=== PATIENT | female | born 1960 | race African-American/Black ===

== ENCOUNTER 2020-10-27 12:22 | Outpatient (REF) | payer MEDICAID, SELFPAY ==
--- NOTE | 2020-10-27 12:29 | MM_ITS ---
EXAMINATION: MM SCREENING DIGITAL BREAST TOMOSYNTHESIS, BILATERAL CLINICAL INFORMATION: Screening. Asymptomatic. Family history breast cancer, sister. The lifetime risk of breast cancer based on the Tyrer-Cuzick Model is 6%. COMPARISON: Mammography: 11/03/2015, outside exam 07/14/2010 ([facility]). TECHNIQUE: Digital breast tomosynthesis is performed in both the craniocaudal and mediolateral oblique views along with computer-aided detection (CAD). Synthesized 2D images are generated from the tomosynthesis. FINDINGS: The breasts are heterogeneously dense, which may obscure small masses (ACR BI-RADS breast composition Category c). There are no significant masses, abnormal calcifications, or other abnormalities. Parenchymal pattern is similar to prior exams. No significant changes. MM/MM tomosynthesis screening BI IMPRESSION: No mammographic evidence of malignancy. ASSESSMENT: BI-RADS 1: Negative RECOMMENDATION: Routine annual mammography screening. This patient's information was entered into a reminder system with a target due date for their next mammogram.
== END 2020-10-27 12:23 | disposition home or self-care (01) ==
LOC: HO.MAMMO 12:22
PROVIDERS: PCP Emergency Medicine; Visit Provider Advanced Practice Midwife
DX: Z12.31 Encounter for screening mammogram for malignant neoplasm of breast (principal)
CPT/HCPCS: 77063; 77067

== ENCOUNTER 2020-11-25 14:57 | Outpatient (REF) | payer MEDICAID, SELFPAY ==
--- NOTE | 2020-11-25 | MR_ITS ---
EXAMINATION: MR BREAST WITHOUT AND WITH CONTRAST, BILATERAL CLINICAL INFORMATION: High-risk screening, strong family history of breast cancer. COMPARISON: Bilateral mammogram 10/27/2020. TECHNIQUE: Imaging was performed with a dedicated breast coil. Prior to the administration of contrast, bilateral axial T1 and bilateral axial T2 weighted sequences were obtained. After the uneventful administration of?5.5 mL of Gadavist, dynamic contrast-enhanced VIBRANT series through the breasts in the axial plane were performed. Subtracted images were performed and reviewed. A delayed sagittal sequence through both breasts was acquired. Additionally, CAD post-processing, including maximum intensity projections, 3-D reconstructions and kinetic analysis, were performed an independent workstation and reviewed by the interpreting radiologist is a portion of this exam. FINDINGS: The breast tissue is composed of extremely dense fibroglandular elements. There is no significant background parenchymal enhancement present in either breast. LEFT BREAST: No suspicious masslike or non-masslike enhancement. No abnormal skin thickening or nipple retraction. No abnormal architectural distortion. Review of the T2 weighted images demonstrates no fibrocystic changes or dilated ducts. Review of kinetic images reveals no additional findings. RIGHT BREAST: No suspicious masslike or non-masslike enhancement. No abnormal skin thickening or nipple retraction. No abnormal architectural distortion. Review of the T2 weighted images demonstrates no fibrocystic changes or dilated ducts. Review of kinetic images reveals no additional findings. There is no suspicious internal mammary chain or axillary adenopathy. Limited views of the chest and abdomen are unremarkable. MR/MR breast BI wo/w con IMPRESSION: No MR specific evidence of malignancy. ASSESSMENT: LEFT BREAST: BI-RADS 1 - Negative. RIGHT BREAST: BI-RADS 1 - Negative. RECOMMENDATIONS: Bilateral mammogram in September 2021. Repeat MRI as clinically indicated.
== END 2020-11-25 14:58 | disposition home or self-care (01) ==
LOC: HO.MRI 14:57
PROVIDERS: Visit Provider Advanced Practice Midwife
DX: Z80.3 Family history of malignant neoplasm of breast (principal)
CPT/HCPCS: 77049; A9585

== ENCOUNTER 2022-06-23 10:45 | Outpatient (REF) | payer MEDICAID, SELFPAY ==
--- NOTE | ~2022-06-23 | XR_ITS ---
EXAMINATION: XR LUMBOSACRAL SPINE WITH OBLIQUES CLINICAL INFORMATION: Low back pain COMPARISON: None TECHNIQUE: AP, both oblique, and lateral views of the lumbar spine. Lateral view of the lumbosacral junction. FINDINGS: There is mild 3 mm anterior subluxation of L4 with respect L5. Bone alignment is otherwise normal. No fracture or dislocation is seen. There is degenerative disc disease at L4-L5. There is lower lumbar spine facet arthritis. XR/XR lumbar spine 4V min IMPRESSION: Degenerative changes.
--- NOTE | ~2022-06-23 | XR_ITS ---
EXAMINATION: BILATERAL KNEE X-RAY CLINICAL INFORMATION: Pain COMPARISON: None TECHNIQUE: 3 views of each knee FINDINGS: Bone alignment is normal. No fracture or dislocation is seen. Joint spaces are normal. There is no joint effusion. XR/XR knee RT 3V IMPRESSION: Normal knees.
--- NOTE | ~2022-06-23 | XR_ITS ---
EXAMINATION: BILATERAL KNEE X-RAY CLINICAL INFORMATION: Pain COMPARISON: None TECHNIQUE: 3 views of each knee FINDINGS: Bone alignment is normal. No fracture or dislocation is seen. Joint spaces are normal. There is no joint effusion. XR/XR knee LT 3V IMPRESSION: Normal knees.
[2022-06-23 11:12] LABS: MANUAL DIFF FLAG NO
[2022-06-23 11:56] LABS: Basophils Percent Auto 0.3 % (0-2); Eosinophils Absolute Auto 0.3 X10*3/uL (0.0-0.4); Eosinophils Percent Auto 3.4 % (0-4); Hematocrit 44.1 % (37.0-47.0); Hemoglobin 14.2 g/dl (12.0-16.0); Imm Gran Abs Auto 0.04 X10*3/uL (0.00-0.03); Imm Gran Pct Auto 0.4 % (0.0-0.4); Lymphocytes Absolute Auto 2.6 X10*3/uL (1.2-4.9); Lymphocytes Percent Auto 25.5 % (20-40); Mean Corpuscular HGB Conc 32.2 g/dl (31.0-35.0); Mean Corpuscular Volume 86.8 fL (80.0-98.0); Mean Platelet Volume 8.8 fL (9.4-12.3); Monocytes Absolute Auto 0.6 X10*3/uL (0.1-1.2); Monocytes Percent Auto 6.2 % (2-11); Neutrophils Absolute Auto 6.5 x10*3/uL (2.0-8.3); Neutrophils Percent Auto 64.2 % (45-73); Platelet Count 296 X10*3/uL (160-400); Red Blood Count 5.08 X10*6/uL (4.20-5.50); Red Cell Distribution Width 12.6 % (11.0-16.0); White Blood Count 10.1 X10*3/uL (4.8-10.8)
[2022-06-23 12:32] LABS: Alanine Aminotransferase 19 U/L (0-31); Alkaline Phosphatase 82 U/L (39-117); Anion Gap 15 (12-20); Aspartate Amino Transferase 23 U/L (5-31); Bilirubin Direct 0.2 mg/dL (0.0-0.5); Bilirubin Total 0.4 mg/dL (0.0-1.0); Blood Urea Nitrogen 10 mg/dL (9-16); Calcium 9.7 mg/dL (8.4-10.2); Carbon Dioxide 31 mmol/L (22-29); Chloride 98 mmol/L (96-108); Cholesterol 143 mg/dL; Estimated Glomerular Filt Rate > 60; Glucose Random 129 mg/dL (60-115); HDL Cholesterol 56 mg/dL; LDL Cholesterol Calculated 75 mg/dl; Potassium 4.5 mmol/L (3.3-5.1); Sodium 139 mmol/L (135-145); Total Protein 7.5 g/dL (6.5-8.0); Triglycerides 64 mg/dL
[2022-06-24 05:28] LABS: ~HepC Num1 14.31 S/CO (0.00-0.79); ~Hepatitis C Antibody Reactive (Nonreactive)
[2022-06-27 17:02] LABS: HCV Log PCR 6.29 Log IU/mL (NOT DETECTED); HepC Viral Load 1950000 IU/mL (NOT DETECTED)
== END 2022-06-23 10:46 | disposition home or self-care (01) ==
LOC: HO.LAB 10:45
PROVIDERS: Visit Provider Internal Medicine Geriatric Medicine
DX: M25.561 Pain in right knee (principal); M25.562 Pain in left knee; M54.50 Low back pain, unspecified
CPT/HCPCS: 36415; 72110; 73562; 80048; 80061; 80076; 85025; 86803; 87522

== ENCOUNTER → 2022-07-06 10:44 | Outpatient (BNVA) | payer MEDICAID, SELFPAY | PROVIDERS: PCP Nurse Practitioner Family; Referring Provider Nurse Practitioner Family; Visit Provider Internal Medicine | DX: R01.1 Cardiac murmur, unspecified (principal); F19.10 Other psychoactive substance abuse, uncomplicated | CPT/HCPCS: 93005; 99202 ==

== ENCOUNTER 2023-01-02 15:52 | Emergency (ER) | payer MEDICAID, SELFPAY ==
--- NOTE | 2023-01-02 15:58 | ED_ITS ---
HPI - General Adult General Chief complaint: Back Pain/Injury <FRANSISCO Whitney - Last Filed: 01/02/23 16:05> Stated complaint: Cant feel her legs <FRANSISCO Whitney - Last Filed: 01/02/23 16:05> Time Seen by Provider: 01/02/23 17:52 <FRANSISCO Whitney - Last Filed: 01/02/23 16:05> Source: patient <Magdaleno Ortiz MD - Last Filed: 01/02/23 23:01> Mode of arrival: ambulatory <Magdaleno Ortiz MD - Last Filed: 01/02/23 23:01> Limitations: no limitations <Magdaleno Ortiz MD - Last Filed: 01/02/23 23:01> History of Present Illness HPI narrative: Patient history of chronic back going on for years got worse for last few months with increased leg swelling in mostly localized in the lumbar area radiates to left leg sometimes when walks no paresthesia no bladder bowel in loss of sensation in the back no recent injury no fever chills no IVDA use patient also noticed increased leg swelling for last few months and has gained weight <Magdaleno Ortiz MD - Last Filed: 01/02/23 23:01> Related Data Home medications: Home Medications Medication Instructions Recorded Confirmed methadone 10 mg/mL oral concentrate 52 mg PO DAILY 07/06/22 07/06/22 Previous Rx's Medication Instructions Recorded cyclobenzaprine 10 mg tablet 10 mg PO Q8H #20 tabs 01/02/23 hydrochlorothiazide 25 mg tablet 25 mg PO QAM #30 tabs 01/02/23 tramadol 50 mg tablet 50 mg PO Q6H PRN pain #20 tabs 01/02/23 <FRANSISCO Whitney - Last Filed: 01/02/23 16:05> Allergies/adverse reactions: Allergies Allergy/AdvReac Type Severity Reaction Status Date / Time Sulfa (Sulfonamide Allergy Unknown SWELLING Verified 07/06/22 10:54 Antibiotics) [SULFA (SULFONAMIDE ANTIBIOTICS)] <FRANSISCO Whitney - Last Filed: 01/02/23 16:05> Review of Systems Review of Systems: Yes all other systems are reviewed and are negative <Magdaleno Ortiz MD - Last Filed: 01/02/23 23:01> [facility] Past Medical History Medical History: Medical History Substance abuse <FRANSISCO Whitney - Last Filed: 01/02/23 16:05> Surgical History: Surgical History No pertinent past surgical history <FRANSISCO Whitney - Last Filed: 01/02/23 16:05> Family History Family History: Family History Other Family history unknown <FRANSISCO Whitney - Last Filed: 01/02/23 16:05> Social History Social History: Social History Patient Tobacco Use Status: Current everyday Tobacco user Cigarettes Per Day: 1 Smoked in Last 30 Days: Yes Use of substances other than those prescribed or required for medical reasons: Yes Substance Use Type: Crack/Cocaine Substance Use Frequency: Daily Last Used Substance: Just Prior to Admission Any prior treatment program specific to substance use: Yes Advance Directives: No Advance Directives Information Provided: Yes <FRANSISCO Whitney - Last Filed: 01/02/23 16:05> Physical Exam ED Vital Signs: Vital Signs - 24 hr 01/02/23 15:59 01/02/23 16:21 01/02/23 20:53 Temperature 98.3 F 98.3 F Pulse Rate 108 H 107 H 89 Respiratory Rate 16 14 16 Blood Pressure 168/92 H 154/90 H 141/76 H Pulse Oximetry 96 93 97 Oxygen Delivery Method Room Air Room Air Room Air BMI result Body Mass Index 29.2 <FRANSISCO Whitney - Last Filed: 01/02/23 16:05> Vital Signs - 24 hr 01/02/23 15:59 01/02/23 16:21 01/02/23 20:53 Temperature 98.3 F 98.3 F Pulse Rate 108 H 107 H 89 Respiratory Rate 16 14 16 Blood Pressure 168/92 H 154/90 H 141/76 H Pulse Oximetry 96 93 97 Oxygen Delivery Method Room Air Room Air Room Air BMI result Body Mass Index 29.2 <Magdaleno Ortiz MD - Last Filed: 01/02/23 23:01> Appearance: Alert. Oriented X3. No acute distress. Eyes: PERRLA, No Nystagmus ENT: Pharynx normal. Oral Mucosa moist Neck: Normal inspection. Neck supple. CVS: Normal heart rate and rhythm. Pulses normal. Respiratory: No respiratory distress. Equal air entry bilateral, no wheezing/rales/rhonchi Abdomen: Soft and nontender. Bowel sounds are present, no mass palpable, no CVA tenderness Skin: Skin warm and dry. Normal skin color. Normal skin turgor. Extremities: 2 + lower extremity edema. No calf tenderness back: Diffuse tenderness lumbar spine area no deformity no skin color change SLR negative bilaterally Neuro: Oriented X 3. No motor deficit. No sensory deficit.No cerebellar signs , cranial nerves II-XII intact <Magdaleno Ortiz MD - Last Filed: 01/02/23 23:01> Course Course Course Narrative: RME - 62 yo female with history of substance abuse, hepatitis C presents to the ER for evaluation of severe low back pain and inability to walk. She is falling asleep in triage and a poor historian. Reports the pain has been present for 4-5 years. HR 108. Needs labs and thorough physical examination. To be brought back to treatment room. <FRANSISCO Whitney - Last Filed: 01/02/23 16:05> Medications Administered Discontinued Medications Generic Name Dose Route Start Last Admin Trade Name Freq PRN Reason Stop Dose Admin Cyclobenzaprine HCl 10 mg 01/02/23 20:42 01/02/23 20:51 Cyclobenzaprine Hcl 10 Mg Tablet PO 01/02/23 20:43 10 mg ONCE ONE Administration Prednisone 40 mg 01/02/23 20:42 01/02/23 20:51 Prednisone 20 Mg Tablet PO 01/02/23 20:43 40 mg ONCE ONE Administration <FRANSISCO Whitney - Last Filed: 01/02/23 16:05> Medications Administered Discontinued Medications Generic Name Dose Route Start Last Admin Trade Name Freq PRN Reason Stop Dose Admin Cyclobenzaprine HCl 10 mg 01/02/23 20:42 01/02/23 20:51 Cyclobenzaprine Hcl 10 Mg Tablet PO 01/02/23 20:43 10 mg ONCE ONE Administration Prednisone 40 mg 01/02/23 20:42 01/02/23 20:51 Prednisone 20 Mg Tablet PO 01/02/23 20:43 40 mg ONCE ONE Administration <Magdaleno Ortiz MD - Last Filed: 01/02/23 23:01> Medical Decision Making Medical Decision Making [facility] Narrative: Patient with chronic low back pain no focal neurological deficit leg edema likely dependent edema as BNP normal liver functions normal discharge patient home on pain management and diuretics <Magdaleno Ortiz MD - Last Filed: 01/02/23 23:01> Lab Data [facility] Lab Attestation statement: I reviewed the patient's lab results. <Magdaleno Ortiz MD - Last Filed: 01/02/23 23:01> Result Diagrams: 01/02/23 19:01 01/02/23 19:01 <FRANSISCO Whitney - Last Filed: 01/02/23 16:05> Labs: Lab Results 01/02/23 01/02/23 01/02/23 Range/Units 19:01 19:01 19:01 WBC 9.6 (4.8-10.8) X10*3/uL RBC 5.33 (4.20-5.50) X10*6/uL Hgb 14.8 (12.0-16.0) g/dl Hct 47.0 (37.0-47.0) % MCV 88.2 (80.0-98.0) fL MCH 27.8 (27.0-33.0) pg MCHC 31.5 (31.0-35.0) g/dl RDW 12.7 (11.0-16.0) % Plt Count 275 (160-400) X10*3/uL MPV 8.6 L (9.4-12.3) fL Immature Gran % (Auto) 0.2 (0.0-0.4) % Neut % (Auto) 65.4 (45-73) % Lymph % (Auto) 24.7 (20-40) % Coal % (Auto) 5.8 (2-11) % Eos % (Auto) 3.6 (0-4) % Baso % (Auto) 0.3 (0-2) % Lymph # (Auto) 2.4 (1.2-4.9) X10*3/uL Coal # (Auto) 0.6 (0.1-1.2) X10*3/uL Eos # (Auto) 0.4 (0.0-0.4) X10*3/uL Baso # (Auto) 0.0 (0.0-0.2) X10*3/uL Abs Immat Gran (auto) 0.02 (0.00-0.03) X10*3/uL Absolute Neuts (auto) 6.3 (2.0-8.3) x10*3/uL Absolute Nucleated RBC 0.000 (0.0-0.012) X10*3/uL Nucleated RBC % (auto) 0.0 (0.0-0.2) /100WBC Sodium 140 (135-145) mmol/L Potassium 5.0 (3.3-5.1) mmol/L Chloride 105 (96-108) mmol/L Carbon Dioxide 22 (22-29) mmol/L Anion Gap 18 (12-20) BUN 15 (9-16) mg/dL Creatinine 0.85 (0.5-1.4) mg/dL Estim Creat Clear Calc 59.8 Estimated GFR > 60 Random Glucose 131 H (60-115) mg/dL Calcium 9.7 (8.4-10.2) mg/dL Magnesium 2.1 (1.6-2.6) mg/dL Total Bilirubin 0.4 (0.0-1.0) mg/dL Direct Bilirubin < 0.2 (0.0-0.5) mg/dL AST 30 (5-31) U/L ALT 21 (0-31) U/L Alkaline Phosphatase 91 (39-117) U/L B-Natriuretic Peptide 10 (<100) pg/mL Total Protein 7.7 (6.5-8.0) g/dL Albumin 4.2 (3.5-5.0) g/dL <FRANSISCO Whitney - Last Filed: 01/02/23 16:05> Lab Results 01/02/23 01/02/23 01/02/23 Range/Units 19:01 19:01 19:01 WBC 9.6 (4.8-10.8) X10*3/uL RBC 5.33 (4.20-5.50) X10*6/uL Hgb 14.8 (12.0-16.0) g/dl Hct 47.0 (37.0-47.0) % MCV 88.2 (80.0-98.0) fL MCH 27.8 (27.0-33.0) pg MCHC 31.5 (31.0-35.0) g/dl RDW 12.7 (11.0-16.0) % Plt Count 275 (160-400) X10*3/uL MPV 8.6 L (9.4-12.3) fL Immature Gran % (Auto) 0.2 (0.0-0.4) % Neut % (Auto) 65.4 (45-73) % Lymph % (Auto) 24.7 (20-40) % Coal % (Auto) 5.8 (2-11) % Eos % (Auto) 3.6 (0-4) % Baso % (Auto) 0.3 (0-2) % Lymph # (Auto) 2.4 (1.2-4.9) X10*3/uL Coal # (Auto) 0.6 (0.1-1.2) X10*3/uL Eos # (Auto) 0.4 (0.0-0.4) X10*3/uL Baso # (Auto) 0.0 (0.0-0.2) X10*3/uL Abs Immat Gran (auto) 0.02 (0.00-0.03) X10*3/uL Absolute Neuts (auto) 6.3 (2.0-8.3) x10*3/uL Absolute Nucleated RBC 0.000 (0.0-0.012) X10*3/uL Nucleated RBC % (auto) 0.0 (0.0-0.2) /100WBC Sodium 140 (135-145) mmol/L Potassium 5.0 (3.3-5.1) mmol/L Chloride 105 (96-108) mmol/L Carbon Dioxide 22 (22-29) mmol/L Anion Gap 18 (12-20) BUN 15 (9-16) mg/dL Creatinine 0.85 (0.5-1.4) mg/dL Estim Creat Clear Calc 59.8 Estimated GFR > 60 Random Glucose 131 H (60-115) mg/dL Calcium 9.7 (8.4-10.2) mg/dL Magnesium 2.1 (1.6-2.6) mg/dL Total Bilirubin 0.4 (0.0-1.0) mg/dL Direct Bilirubin < 0.2 (0.0-0.5) mg/dL AST 30 (5-31) U/L ALT 21 (0-31) U/L Alkaline Phosphatase 91 (39-117) U/L B-Natriuretic Peptide 10 (<100) pg/mL Total Protein 7.7 (6.5-8.0) g/dL Albumin 4.2 (3.5-5.0) g/dL <Magdaleno Ortiz MD - Last Filed: 01/02/23 23:01> Discharge Plan Discharge Clinical Impression: Strain of lumbar region <FRANSISCO Whitney - Last Filed: 01/02/23 16:05> Patient Disposition: Home, Self-Care <FRANSISCO Whitney - Last Filed: 01/02/23 16:05> Instructions: Back Pain (ED) <FRANSISCO Whitney - Last Filed: 01/02/23 16:05> Additional Instructions: Take pain medication muscle relaxants as prescribed Follow-up with your PCP if not better Keep your legs elevated Take water pill daily as needed for increased leg swelling <FRANSISCO Whitney - Last Filed: 01/02/23 16:05> Prescriptions: New cyclobenzaprine 10 mg tablet 10 mg PO Q8H Qty: 20 0RF tramadol 50 mg tablet 50 mg PO Q6H PRN (Reason: pain) Qty: 20 0RF hydrochlorothiazide 25 mg tablet 25 mg PO QAM Qty: 30 0RF No Action methadone 10 mg/mL concentrate 52 mg PO DAILY <FRANSISCO Whitney - Last Filed: 01/02/23 16:05> Interventions: ED Discharge Assessment Last Done: 01/02/23 21:18 <FRANSISCO Whitney - Last Filed: 01/02/23 16:05> Discharge Date/Time: 01/02/23 21:28 <FRANSISCO Whitney - Last Filed: 01/02/23 16:05>
[2023-01-02 15:59] VITALS: BP 168/92; PULSE 108; RESP 16; TEMP 36.8; O2SAT 96; BMI 29.2
[2023-01-02 16:21] VITALS: BP 154/90; PULSE 107; RESP 14; TEMP 36.8; O2SAT 93
[2023-01-02 19:08] LABS: MANUAL DIFF FLAG NO
[2023-01-02 19:09] LABS: Basophils Percent Auto 0.3 % (0-2); Eosinophils Absolute Auto 0.4 X10*3/uL (0.0-0.4); Eosinophils Percent Auto 3.6 % (0-4); Hemoglobin 14.8 g/dl (12.0-16.0); Imm Gran Abs Auto 0.02 X10*3/uL (0.00-0.03); Imm Gran Pct Auto 0.2 % (0.0-0.4); Lymphocytes Absolute Auto 2.4 X10*3/uL (1.2-4.9); Lymphocytes Percent Auto 24.7 % (20-40); Mean Corpuscular HGB Conc 31.5 g/dl (31.0-35.0); Mean Corpuscular Hemoglobin 27.8 pg (27.0-33.0); Mean Corpuscular Volume 88.2 fL (80.0-98.0); Mean Platelet Volume 8.6 fL (9.4-12.3); Monocytes Absolute Auto 0.6 X10*3/uL (0.1-1.2); Monocytes Percent Auto 5.8 % (2-11); Neutrophils Absolute Auto 6.3 x10*3/uL (2.0-8.3); Neutrophils Percent Auto 65.4 % (45-73); Platelet Count 275 X10*3/uL (160-400); Red Blood Count 5.33 X10*6/uL (4.20-5.50); Red Cell Distribution Width 12.7 % (11.0-16.0); White Blood Count 9.6 X10*3/uL (4.8-10.8)
--- NOTE | 2023-01-02 19:09 | PC.NURSE ---
assumed care of pt at 1900, pt reports using crack cocaine, has been off methadone due to wt gain, pt resting quietly, vss, phlebotomy at bedside obtaining labs.
[2023-01-02 19:34] LABS: Alanine Aminotransferase 21 U/L (0-31); Albumin Level 4.2 g/dL (3.5-5.0); Alkaline Phosphatase 91 U/L (39-117); Anion Gap 18 (12-20); Aspartate Amino Transferase 30 U/L (5-31); Bilirubin Direct < 0.2 mg/dL (0.0-0.5); Bilirubin Total 0.4 mg/dL (0.0-1.0); Blood Urea Nitrogen 15 mg/dL (9-16); Calcium 9.7 mg/dL (8.4-10.2); Carbon Dioxide 22 mmol/L (22-29); Chloride 105 mmol/L (96-108); Creatinine Clr Calc Pharmacy 59.8; Estimated Glomerular Filt Rate > 60; Glucose Random 131 mg/dL (60-115); Magnesium 2.1 mg/dL (1.6-2.6); Sodium 140 mmol/L (135-145); Total Protein 7.7 g/dL (6.5-8.0)
[2023-01-02 19:38] LABS: B Type Natriuretic Peptide 10 pg/mL (<100)
[2023-01-02] MEDS: Cyclobenzaprine HCl 10 MG TABLET PO (20:51)
[2023-01-02] MEDS: predniSONE 20 MG TABLET 40 MG PO (20:51)
[2023-01-02 20:53] VITALS: BP 141/76; PULSE 89; RESP 16; O2SAT 97
--- NOTE | 2023-01-02 20:58 | PC.NURSE ---
pt reporting improvement in back pain while at rest, pt remains drowsy, vss, medicated per provider order, pt provided with a sandwich and gulshan candice. no new orders at this time.
== END 2023-01-02 21:28 | disposition home or self-care (01) ==
PROVIDERS: Physician Assistant; Emergency Provider Internal Medicine
DX: S39.012A Strain of muscle, fascia and tendon of lower back, initial encounter (principal); X58.XXXA Exposure to other specified factors, initial encounter; R60.0 Localized edema; F19.10 Other psychoactive substance abuse, uncomplicated; F11.20 Opioid dependence, uncomplicated; F17.210 Nicotine dependence, cigarettes, uncomplicated; Y93.9 Activity, unspecified; Y92.9 Unspecified place or not applicable; Y99.9 Unspecified external cause status
CPT/HCPCS: 36415; 80048; 80076; 83735; 83880; 85025; 99283; 99284

== ENCOUNTER 2024-02-26 15:05 | Outpatient (REF) | payer MEDICAID, SELFPAY ==
[2024-02-26 17:37] LABS: Microalbum/Creatinine Ratio Ur 9.4 ug/mg cr (<30)
== END 2024-02-26 15:06 | disposition home or self-care (01) ==
LOC: HO.HHCL 15:05
PROVIDERS: Visit Provider Internal Medicine Geriatric Medicine
DX: I10 Essential (primary) hypertension (principal); B18.2 Chronic viral hepatitis C
CPT/HCPCS: 82043; 82570

== ENCOUNTER 2024-03-06 13:51 | Outpatient (REF) | payer MEDICAID, SELFPAY ==
[2024-03-06 14:24] LABS: MANUAL DIFF FLAG NO
[2024-03-06 15:44] LABS: Basophils Percent Auto 0.3 % (0-2); Eosinophils Absolute Auto 0.3 X10*3/uL (0.0-0.4); Eosinophils Percent Auto 3.2 % (0-4); Hematocrit 42.6 % (37.0-47.0); Hemoglobin 13.8 g/dl (12.0-16.0); Imm Gran Abs Auto 0.03 X10*3/uL (0.00-0.03); Imm Gran Pct Auto 0.3 % (0.0-0.4); Lymphocytes Absolute Auto 2.5 X10*3/uL (1.2-4.9); Lymphocytes Percent Auto 27.7 % (20-40); Mean Corpuscular HGB Conc 32.4 g/dl (31.0-35.0); Mean Corpuscular Hemoglobin 27.9 pg (27.0-33.0); Mean Corpuscular Volume 86.2 fL (80.0-98.0); Mean Platelet Volume 9.2 fL (9.4-12.3); Monocytes Absolute Auto 0.7 X10*3/uL (0.1-1.2); Monocytes Percent Auto 7.5 % (2-11); Neutrophils Absolute Auto 5.5 x10*3/uL (2.0-8.3); Platelet Count 328 X10*3/uL (160-400); Red Blood Count 4.94 X10*6/uL (4.20-5.50); Red Cell Distribution Width 12.7 % (11.0-16.0); White Blood Count 9.1 X10*3/uL (4.8-10.8)
[2024-03-06 15:47] LABS: Prothrombin Time 11.8 SEC (11.1-13.3)
[2024-03-06 16:03] LABS: Estimated Average Glucose 117 mg/dL; Hemoglobin A1c % 5.7 % (<6.0)
[2024-03-06 16:06] LABS: Creatinine Urine 133.14 mg/dL; Microalbum/Creatinine Ratio Ur 34.5 ug/mg cr (<30)
[2024-03-06 16:12] LABS: Alanine Aminotransferase 21 U/L (0-31); Albumin Level 4.4 g/dL (3.5-5.0); Alkaline Phosphatase 84 U/L (39-117); Anion Gap 15 (12-20); Aspartate Amino Transferase 27 U/L (5-31); Bilirubin Direct 0.2 mg/dL (0.0-0.5); Bilirubin Total 0.4 mg/dL (0.0-1.0); Blood Urea Nitrogen 19 mg/dL (9-16); Calcium 10.2 mg/dL (8.4-10.2); Carbon Dioxide 28 mmol/L (22-29); Chloride 103 mmol/L (96-108); Cholesterol 145 mg/dL (<200); Estimated Glomerular Filt Rate > 60; Glucose Random 88 mg/dL (60-115); HDL Cholesterol 64 mg/dL (>40); LDL Cholesterol Calculated 71 mg/dL (<100); Potassium 3.8 mmol/L (3.3-5.1); Sodium 142 mmol/L (135-145); Total Protein 8.3 g/dL (6.5-8.0); Triglycerides 52 mg/dL (<150)
[2024-03-07 04:40] LABS: HBS Num1 > 1000.00 mIU/mL (0-7.99); HBc Num1 5.17 S/CO (0.00-0.79); HBsAGNum1 0.35 S/CO (0.00-0.99); HIV AB/AG Nonreactive (Nonreactive); HIV Num 1 0.12 S/CO (0.00-0.99); Hepatitis B Surface Antigen Negative (Negative); ~HepC Num1 13.24 S/CO (0.00-0.79); ~Hepatitis B Surface Antibody REACTIVE (Nonreactive); ~Hepatitis C Antibody Reactive (Nonreactive)
[2024-03-07 04:50] LABS: Hepatitis A Antibody IgM 0.75 Index (0-0.79); ~Hepatitis A Antibody IgM Nonreactive (Nonreactive)
[2024-03-07 05:18] LABS: HBc Num2 5.44 S/CO; HBc Num3 5.13 S/CO; Hepatitis B Core Antibody Reactive (Nonreactive)
[2024-03-08 08:09] LABS: HCV RNA PCR Qn 1500000 IU/mL (NOT DETECTED); HCV RNA PCR Qn 6.18 Log IU/mL (NOT DETECTED)
[2024-03-13 15:39] LABS: HCV Genotype LiPA 1a
[2024-03-18 15:39] LABS: FIB-ALT 17 U/L (6-29); FIB-Alpha-2-Macroglobulin 134 mg/dL (106-279); FIB-Apolipoprotein A1 135 mg/dL (101-198); FIB-GGT 22 U/L (3-65); FIB-Haptoglobin 86 mg/dL (43-212); FIB-Total Bilirubin 0.4 mg/dL (0.2-1.2); Liver Fibrosis Score 0.13; Liver Fibrosis Stage F0; Nec Inflam Act Grade A0; Nec Inflam Act Score 0.05
== END 2024-03-06 13:52 | disposition home or self-care (01) ==
LOC: HO.LAB 13:51
PROVIDERS: Absent Provider Internal Medicine Geriatric Medicine; PCP Internal Medicine Geriatric Medicine; Visit Provider Emergency Medicine
DX: I10 Essential (primary) hypertension (principal); B18.2 Chronic viral hepatitis C
CPT/HCPCS: 36415; 80048; 80061; 80076; 81596; 82043; 82570; 83036; 85025; 85610; 86704; 86706; 86709; 86803; 87340; 87389; 87522; 87902

== ENCOUNTER → 2024-03-19 10:30 | Outpatient (BNV) | payer MEDICAID, SELFPAY | PROVIDERS: PCP Internal Medicine Geriatric Medicine; Visit Provider Radiology Diagnostic Radiology | DX: Z12.31 Encounter for screening mammogram for malignant neoplasm of breast (principal) | CPT/HCPCS: 77063; 77067 ==

== ENCOUNTER 2024-03-19 10:55 | Outpatient (REF) | payer MEDICAID, SELFPAY ==
--- NOTE | ~2024-03-19 | MM_ITS ---
EXAMINATION: MM SCREENING DIGITAL BREAST TOMOSYNTHESIS, BILATERAL CLINICAL INFORMATION: Screening. Asymptomatic. COMPARISON: Mammography: This study is compared with prior exams dating back to 2009. TECHNIQUE: Digital breast tomosynthesis is performed in both the craniocaudal and mediolateral oblique views along with computer-aided detection (CAD). Synthesized 2D images are generated from the tomosynthesis. FINDINGS: The breasts are heterogeneously dense, which may obscure small masses (ACR BI-RADS breast composition Category c). There are no significant masses, abnormal calcifications, or other abnormalities. MM/MM tomosynthesis screening BI IMPRESSION: No mammographic evidence of malignancy. ASSESSMENT: BI-RADS BI-RADS 1 - Negative RECOMMENDATION: Routine annual mammography screening. 1 year F/U This examination should not preclude the clinical evaluation of a suspicious palpable abnormality. This patient's information was entered into a reminder system with a target due date for their next mammogram.
== END 2024-03-19 10:56 | disposition home or self-care (01) ==
LOC: HO.MAMMO 10:55
PROVIDERS: PCP Internal Medicine Geriatric Medicine; Visit Provider Internal Medicine Geriatric Medicine
DX: Z12.31 Encounter for screening mammogram for malignant neoplasm of breast (principal)
CPT/HCPCS: 77063; 77067

== ENCOUNTER 2024-11-04 10:31 | Outpatient (REF) | payer MEDICAID, SELFPAY ==
[2024-11-04 13:54] LABS: Basophils Percent Auto 0.4 % (0-2); Eosinophils Absolute Auto 0.4 X10*3/uL (0.0-0.4); Eosinophils Percent Auto 4.5 % (0-4); Hematocrit 41.3 % (37.0-47.0); Hemoglobin 13.3 g/dl (12.0-16.0); Imm Gran Abs Auto 0.02 X10*3/uL (0.00-0.03); Imm Gran Pct Auto 0.2 % (0.0-0.4); Lymphocytes Absolute Auto 3.3 X10*3/uL (1.2-4.9); Lymphocytes Percent Auto 39.9 % (20-40); MANUAL DIFF FLAG NO; Mean Corpuscular HGB Conc 32.2 g/dl (31.0-35.0); Mean Corpuscular Hemoglobin 28.4 pg (27.0-33.0); Mean Corpuscular Volume 88.1 fL (80.0-98.0); Monocytes Absolute Auto 0.6 X10*3/uL (0.1-1.2); Monocytes Percent Auto 7.4 % (2-11); Neutrophils Absolute Auto 3.9 x10*3/uL (2.0-8.3); Neutrophils Percent Auto 47.6 % (45-73); Platelet Count 214 X10*3/uL (160-400); Red Blood Count 4.69 X10*6/uL (4.20-5.50); Red Cell Distribution Width 12.8 % (11.0-16.0); White Blood Count 8.3 X10*3/uL (4.8-10.8)
[2024-11-04 14:07] LABS: Estimated Average Glucose 111 mg/dL; Hemoglobin A1C 125.9697 umol/L; Hemoglobin A1c % 5.5 % (<6.0); Total Hemoglobin (HGBA1C) 3433.0755 umol/L
[2024-11-04 14:15] LABS: Rheumatoid Factor < 13.0 IU/mL (<15.0)
[2024-11-04 14:18] LABS: Alanine Aminotransferase 14 U/L (0-31); Albumin Level 4.1 g/dL (3.5-5.0); Alkaline Phosphatase 87 U/L (39-117); Aspartate Amino Transferase 26 U/L (5-31); Bilirubin Direct 0.1 mg/dL (0.0-0.5); Bilirubin Total 0.3 mg/dL (0.0-1.0); C Reactive Protein < 0.10 mg/dL (< or = 0.50); Glucose Random 99 mg/dL (60-115); Total Protein 7.6 g/dL (6.5-8.0)
[2024-11-04 14:30] LABS: Erythrocyte Sedimentation Rate 11 MM/HR (0-20)
[2024-11-05 07:33] LABS: Hepatitis B Surface Ab Qnt 246 mIU/mL (> OR = 10)
[2024-11-05 08:36] LABS: HBS Num1 189.45 mIU/mL (0-7.99); HBc Num1 6.69 S/CO (0.00-0.79); HBsAGNum1 0.49 S/CO (0.00-0.99); HIV AB/AG Nonreactive (Nonreactive); HIV Num 1 0.18 S/CO (0.00-0.99); Hepatitis A Antibody IgM 0.25 Index (0-0.79); Hepatitis B Surface Antigen Negative (Negative); ~HepC Num1 15.11 S/CO (0.00-0.79); ~Hepatitis A Antibody IgM Nonreactive (Nonreactive); ~Hepatitis B Surface Antibody REACTIVE (Nonreactive); ~Hepatitis C Antibody Reactive (Nonreactive)
[2024-11-05 08:48] LABS: Syphilis Screen Reactive (Nonreactive)
[2024-11-05 10:38] LABS: HBc Num2 6.39 S/CO; HBc Num3 6.88 S/CO; Hepatitis B Core Antibody Reactive (Nonreactive)
[2024-11-05 16:39] LABS: Anti Nuclear Antibody Screen NEGATIVE (NEGATIVE)
[2024-11-05 18:29] LABS: HCV Log PCR <1.18 NOT DETECTED Log IU/mL (NOT DETECTED); HepC Viral Load <15 NOT DETECTED IU/mL (NOT DETECTED)
[2024-11-08 14:26] LABS: RPR Quantitative Reactive 1:1 (Nonreactive); T.Pallidum Particle Agg Test Reactive (Nonreactive)
== END 2024-11-04 10:32 | disposition home or self-care (01) ==
LOC: HO.HHCL 10:31
PROVIDERS: Visit Provider Internal Medicine
DX: M19.042 Primary osteoarthritis, left hand (principal); B18.2 Chronic viral hepatitis C; R35.89 Other polyuria
CPT/HCPCS: 36415; 80076; 82947; 83036; 85025; 85652; 86038; 86140; 86317; 86431; 86592; 86704; 86706; 86709; 86780; 86803; 87340; 87389; 87522

== ENCOUNTER 2025-05-26 11:07 | Outpatient (REF) | payer MEDICAID, SELFPAY ==
--- NOTE | ~2025-05-26 | XR_ITS ---
Exam: X-ray, bilateral knees.XR KNEE 1-2 VIEWS BILATERAL TECHNIQUE: AP standing and lateral views lower extremity joint, bilateral knees INDICATION: Chronic bilateral knee pain COMPARISON: None available. FINDINGS: RIGHT KNEE: There is minimal narrowing of the medial greater than lateral joint space. No definite joint effusion. There are no osteophytes. There are no soft tissue calcifications. LEFT KNEE: There is minimal narrowing of the medial greater than lateral joint space. No definite joint effusion. There are no osteophytes. There are no soft tissue calcifications. XR/XR Knee Erickson 1or 2V IMPRESSION: Right knee: Mild nonspecific joint space narrowing. Left knee: Mild nonspecific joint space narrowing. Electronically signed by: Cb Quarles MD 05/26/2025 01:26 PM EDT
--- NOTE | ~2025-05-26 | XR_ITS ---
EXAMINATION: XR LUMBOSACRAL SPINE CLINICAL INFORMATION: Chronic low back pain COMPARISON: None available. TECHNIQUE: Three views of the lumbosacral spine. FINDINGS: There are 5 nonrib bearing lumbar segment. There is 13 degrees levoscoliosis. L2-3 demonstrates mild disc space narrowing with anterior osteophytes. L3-4 demonstrates mild disc space narrowing and anterior osteophytes. L4-5 demonstrates grade 1 anterolisthesis, moderate disc space narrowing, and anterior osteophytes. There is facet sclerosis. L5-S1 demonstrates facet sclerosis and osteophytes. XR/XR lumbar spine 2-3V IMPRESSION: Multilevel degenerative changes and mild scoliosis. Electronically signed by: Cb Quarles MD 05/26/2025 01:34 PM EDT
--- OUTSIDE RECORDS SUMMARY | 2025-05-26 12:27 | XMS_ITS | Encounter Summary ---
Author Organization [employer] Address [address] [place] [id number] Care Team Providers Care [employer] Boss Name Role Phone Name, Chriss DOMINGO Primary Care Provider [phone] Reason for Visit * Reason Onset Date Comments Appointment Request 12/17/2024 Encounter Details Date Type Department Care Team ([facility] st Contact Info) Description 12/17/2024 Telephone [facility] [address] [place] [address] Name, MD Chriss [address] [place] [address] Appointment Request Social History Tobacco Use Types Packs/Day Years Used Date Smoking Tobacco: Every Day Cigarettes Smokeless Tobacco: Never Alcohol Use Standard Drinks/Week Comments Not Currently 0 (1 standard drink = 0.6 oz pur e alcohol) Depression Answer Date Recorded Patient Health Questionnaire-9 Score 16 02/28/2024 Patient Health Questionnaire-9 Score 16 02/28/2024 Last PHQ-9: Questionnaire Data Not on file 0 02/28/2024 Housing Stability Answer Date Recorded What is your housing situation today? I do not have housing (Staying with others, in a hotel, in a senior care, living outside on the street, on a beach, in a car, or in a park 02/21/[address] you li ve. Do you have problems with any of the following? None of the above 02/21/2024 Food Insecurity Answer Date Recorded Within the past 12 months, y ou worried that your food would run out before you got money to buy more: Sometimes True 2023 Within the past 12 months,th e food you bought just didn't last and you didn't have enough money to get more: Sometimes True 02/21/2024 Transportation Answer Date Recorded In the past 12 months, has l ack of transportation kept you from medical appts, meetings, work or from getting things needed for daily living? No 02/21/2024 Utilities Answer Date Recorded In the past 12 months, has t he electric, gas, oil or water company threatened to shut off services in your home? No 02/21/2024 Depression Answer Date Recorded Patient Health Questionnaire-2 Score 5 02/28/2024 Comments Unknown Sex and Gender Information Value Date Recorded Sex Assigned at Female 08/29/2022 10:14 AM EDT Legal Sex Female 10:14 AM EDT Gender Identity Female 08/29/2022 10:14 AM EDT Sexual Orientation Straight 08/29/2022 10 :14 AM EDT documented as of this encounter Miscellaneous Notes * Telephone Encounter - Matthieu Gutierrez - 12/17/2024 9:42 AM EST Tc from pt requesting to reschedule appointment from 12/06 for F/U-Athritis/Labs per Rakesh documented in this encounter Plan of Treatment Not on file documented as of this encounter Goals Goal Patient Goal Type Associated Problems Recent Progress Patient-Stated? Author Record your blood pressure once per day Blood Pressure No Puia, Anabel, PharmD Blood Pressure < 140/90 Blood Pressure 146/76(2024 11:27 AM EDT) No Puia, Anabel, PharmD Smoking cessation General No Puia, Anabel, PharmD Patient will adhere to medication regimen General No Puia, Anabel, PharmD documented as of this encounter Visit Diagnoses Not on filedocumented in this encounter Additional Health Concerns Assessment Noted Time PHQ-9 Depression Total Score: 16 024 10:01 AM EDT documented as of this encounter Care Teams [employer] Relationship Specialty Start Date End Date Name, MD Chriss [address] [place] [address] PCP - General Family Medicine 04/26/22 Vikki Charlton [employer] 07/28/23 documented as of this encounter
[2025-05-26 13:10] LABS: MANUAL DIFF FLAG NO
[2025-05-26 13:14] LABS: Appearance Urine Turbid; Glucose Urine UA Negative (Negative); PH 5.5 (5.0-9.0); Specific Gravity - Urine 1.025 (1.005-1.025); UMIC TRIGGER UACC YES
[2025-05-26 13:28] LABS: Hematocrit 41.4 % (37.0-47.0); Hemoglobin 13.0 g/dl (12.0-16.0); Imm Gran Abs Auto 0.02 X10*3/uL (0.00-0.03); Imm Gran Pct Auto 0.3 % (0.0-0.4); Lymphocytes Absolute Auto 1.9 X10*3/uL (1.2-4.9); Mean Corpuscular HGB Conc 31.4 g/dl (31.0-35.0); Mean Corpuscular Hemoglobin 28.3 pg (27.0-33.0); Mean Corpuscular Volume 90.0 fL (80.0-98.0); NRBC Abs Auto 0.000 X10*3/uL (0.0-0.012); NRBC Pct Auto 0.0 /100WBC (0.0-0.2); Platelet Count 267 X10*3/uL (160-400); Red Blood Count 4.60 X10*6/uL (4.20-5.50); UACC Culture Trigger YES; White Blood Count 6.4 X10*3/uL (4.8-10.8)
[2025-05-26 13:46] LABS: Alanine Aminotransferase 15 U/L (0-31); Albumin Level 4.3 g/dL (3.5-5.0); Alkaline Phosphatase 81 U/L (39-117); Anion Gap 17 (12-20); Aspartate Amino Transferase 27 U/L (5-31); Blood Urea Nitrogen 14 mg/dL (9-16); Calcium 9.8 mg/dL (8.4-10.2); Carbon Dioxide 26 mmol/L (22-29); Chloride 104 mmol/L (96-108); Estimated Glomerular Filt Rate 53; Potassium 4.5 mmol/L (3.3-5.1); Sodium 142 mmol/L (135-145); Total Protein 7.2 g/dL (6.5-8.0)
[2025-05-27 03:54] LABS: HIV Num 1 0.13 S/CO (0.00-0.99)
[2025-05-29 15:28] LABS: HCV Log PCR <1.18 NOT DETECTED Log IU/mL (NOT DETECTED); HepC Viral Load <15 NOT DETECTED IU/mL (NOT DETECTED)
== END 2025-05-26 11:08 | disposition home or self-care (01) ==
LOC: HO.HHCLNP 11:07
PROVIDERS: PCP Internal Medicine Geriatric Medicine; Visit Provider Internal Medicine Geriatric Medicine
DX: Z11.3 Encounter for screening for infections with a predominantly sexual mode of transmission (principal); Z11.4 Encounter for screening for human immunodeficiency virus [HIV]; B18.2 Chronic viral hepatitis C; F19.20 Other psychoactive substance dependence, uncomplicated; N39.3 Stress incontinence (female) (male); M54.50 Low back pain, unspecified; G89.29 Other chronic pain; M25.561 Pain in right knee; M25.562 Pain in left knee; Z86.19 Personal history of other infectious and parasitic diseases; Z92.89 Personal history of other medical treatment
CPT/HCPCS: 36415; 72100; 73560; 80053; 81001; 85025; 86592; 87086; 87389; 87522

== ENCOUNTER → 2025-05-26 11:48 | Outpatient (BNV) | payer MEDICAID, SELFPAY | PROVIDERS: PCP Internal Medicine Geriatric Medicine; Visit Provider Radiology Diagnostic Radiology | DX: M51.360 Other intervertebral disc degeneration, lumbar region with discogenic back pain only (principal); M25.561 Pain in right knee; M25.562 Pain in left knee | CPT/HCPCS: 72100; 73560 ==

== ENCOUNTER 2025-08-26 16:04 | Outpatient (REF) | payer MEDICAID, SELFPAY ==
--- OUTSIDE RECORDS SUMMARY | 2025-08-26 15:15 | XMS_ITS | Encounter Summary ---
Author Organization [employer] Address [address] [place] [address] Care Team Providers Care Property Valuer Name Role Phone Name, Chriss DMOINGO Primary Care Provider [phone] Reason for Visit * Reason Comments Follow-up Encounter Details Date Type Department Care Team ([facility] st Contact Info) Description 08/26/2025 3:15 PM EDT Office Visit [facility] [address] [place] [address] Name, MD Chriss [address] [place] [address] Essential hypertension (Primary Dx); Hyperglycemia; Dysuria; Encounter for immunization Social History Tobacco Use Types Packs/Day Years Used Date Smoking Tobacco: Every Day Cigarettes Smokeless Tobacco: Never Tobacco Cessation:Ready to Q uit: Not Asked; Counseling Given: Not Answered Alcohol Use Standard Drinks/Week Comments Not Currently 0 (1 standard drink = 0.6 oz pur e alcohol) Depression Answer Date Recorded Patient Health Questionnaire-9 Score 05/16/2025 Patient Health Questionnaire-9 Score 05/16/2025 Last PHQ-9: Questionnaire Data Not on file 0 05/16/2025 Housing Stability Answer Date Recorded What is your housing situation today? I do not have housing (Staying with others, in a hotel, in a residential, living outside on the street, on a beach, in a car, or in a park 05/16/[address] you li ve. Do you have problems with any of the following? None of the above 05/16/2025 Food Insecurity Answer Date Recorded Within the past 12 months, y ou worried that your food would run out before you got money to buy more: Often true 05/16/2025 Within the past 12 months,th e food you bought just didn't last and you didn't have enough money to get more: Often true Transportation Answer Date Recorded In the past 12 months, has l ack of transportation kept you from medical appts, meetings, work or from getting things needed for daily living? Yes, it has kept me from medical appointments or getting medications. 05/16/2025 Utilities Answer Date Recorded In the past 12 months, has t he electric, gas, oil or water company threatened to shut off services in your home? No 05/16/2025 Depression Answer Date Recorded Patient Health Questionnaire-2 Score 6 05/16/2025 Internet Access Answer Date Recorded Internet Access Q1 No 05/16/2025 Internet Access Q2 Not on file 05/16/2025 Comments Unknown Sex and Gender Information Value Date Recorded Sex Assigned at Female 08/29/2022 10:14 AM EDT Legal Sex Female 10:14 AM EDT Gender Identity Female 08/29/2022 10:14 AM EDT Sexual Orientation Straight 08/29/2022 10 :14 AM EDT documented as of this encounter Last Filed Vital Signs Vital Sign Reading Time Taken Comments Blood Pressure 110/84 08/26/2025 3:13 PM EDT Pulse 75 08/26/2025 3:13 PM EDT Temperature 36.1 C (97 F) 08/26/2025 3:13 PM EDT Respiratory Rate 18 08/26/2025 3:13 PM EDT Oxygen Saturation 97% 08/26/2025 3:13 PM EDT Inhaled Oxygen Concentration - - Weight 49.2 kg (108 lb 6.4 oz) 08/26/2025 3:13 P M EDT Height 152.4 cm (5') 08/26/2025 3:13 PM EDT Body Mass Index 21.17 08/26/2025 3:13 PM EDT documented in this encounter Progress Notes * Chriss Orozco MD - 08/26/2025 3:15 PM EDT Subjective Patient ID: Adela Bradley is a 65 y.o. female who presents for Follow-up. Patient comes for a follow-up visit. Blood pressure is well-controlled on current dose of amlodipine. She tells me she continues to be homeless. She is living in a tent next to [employer] in [place]. She continues using heroin and cocaine. She has Narcan with her at all times and she never uses alone. We discussed results of most recent blood work. She has slight hyperglycemia and I recommended to check hemoglobin A1c today. Urinalysis shows increased WBCs in the urine. She complains of mild dysuria she has chronic incontinence she denies any vaginal discharge. She has not been sexually active in more than a year. Review of Systems Constitutional: Negative for chills and fever. HENT: Negative for sore throat. Respiratory: Negative for cough, shortness of breath and wheezing. Cardiovascular: Negative for chest pain, palpitations and leg swelling. Gastrointestinal: Negative for abdominal pain. Objective Vitals: 08/26/25 1513 BP: 110/84 BP Location: Left arm Patient Position: Sitting BP Cuff Size: Adult Pulse: 75 Resp: 18 Temp: 97 ??F (36.1 ??C) TempSrc: Temporal SpO2: 97% Weight: 108 lb 6.4 oz (49.2 kg) Height: 5' (1.524 m) Physical Exam Constitutional: Appearance: Normal appearance. Cardiovascular: Rate and Rhythm: Normal rate and regular rhythm. Heart sounds: No murmur heard. No gallop. Pulmonary: Effort: Pulmonary effort is normal. No respiratory distress. Breath sounds: Normal breath sounds. No wheezing. Musculoskeletal: Right lower leg: No edema. Left lower leg: No edema. Neurological: Mental Status: She is alert. Lab Results Component Value Date HGBA1C 5.6 08/26/2025 Assessment/Plan Diagnoses and all orders for this visit: Essential hypertension Comments: Continue current dose of amlodipine Hyperglycemia Comments: Hemoglobin A1c today is normal. Orders: - POCT Hgb A1c Dysuria Comments: I recommended to give a sample for urine dipstick but she was unable. She will return to the lab togive a sample for urinalysis and urine for GC and chlamydia Orders: - Urinalysis, Complete, with Reflex to Culture; Future - Chlamydia/N. Gonorrhoeae RNA, TMA, Vaginal Encounter for immunization - FLU VACCINE TRIVALENT [id number] (Fluarix) 19 yrs + She is not interested in referral to CRS. She has Narcan at home. documented in this encounter Plan of Treatment Scheduled Orders Name Type Priority Associated Diagnoses Orde r Schedule Urinalysis, Complete, with Reflex to Culture Lab Routine Dysuria Expected: 08/26/2025 (Approximate), Expires: 08/26/2026 Chlamydia/N. Gonorrhoeae RNA, TMA, Vaginal Microbiology Routine Dysuria Ordered: 08/26/2025 documented as of this encounter Goals Goal Patient Goal Type Associated Problems Recent Progress Patient-Stated? Author Record your blood pressure once per day Blood Pressure No Puia, Anabel, PharmD Blood Pressure < 140/90 Blood Pressure 110/84(2024 3:13 PM EDT) No Puia, Anabel, PharmD Smoking cessation General No Puia, Anabel, PharmD Patient will adhere to medication regimen General No Puia, Anabel, PharmD documented as of this encounter Procedures Procedure Name Priority Date/Time Associated Diagnosis Comments POCT GLYCATED HEMOGLOBIN, TOTAL Routine 08/26/2025 4:05 PM EDT Hyperglycemia documented in this encounter Results * POCT Hgb A1c (08/26/2025 4:05 PM EDT) Hemoglobin A1C 5.6 4.0 - 5.7 % QC Media Lot # [id number] Lot# Expiration Date [id number] Blood 08/26/2025 4:05 PM EDT Chriss Orozco MD POINT OF CARE TEST ENTER/EDIT OR DERABLES Final Result documented in this encounter Visit Diagnoses Diagnosis Essential hypertension- Primary Unspecified essential hypertension Hyperglycemia Other abnormal glucose Dysuria Encounter for immunization documented in this encounter Additional Health Concerns Assessment Noted Time PHQ-9 Depression Total Score: 23 025 11:28 AM EDT documented as of this encounter Care Teams Property Valuer Relationship Specialty Start Date End Date Name, MD Chriss [address] [place] [address] PCP - General Family Medicine 04/26/22 Vikki Charlton ImmunochemistFood Vendor 07/28/23 documented as of this encounter
[2025-08-26 18:42] LABS: Alanine Aminotransferase 16 U/L (0-31); Albumin Level 4.5 g/dL (3.5-5.0); Alkaline Phosphatase 86 U/L (39-117); Aspartate Amino Transferase 20 U/L (5-31); Total Protein 7.6 g/dL (6.5-8.0)
--- OUTSIDE RECORDS SUMMARY | 2025-08-26 20:07 | XMS_ITS | Encounter Summary ---
Author Organization [employer] Address [address] [facility] [address] [place] [address] Care Team Providers Care Adjunct Instructor Name Role Phone Name, Chriss DOMINGO Primary Care Provider [phone] Reason for Visit * Reason Onset Date Comments Nurse Triage 08/27/2024 Encounter Details Date Type Department Care Team ([facility] st Contact Info) Description 08/27/2024 Telephone [facility] [address] [place] [address] Name, MD Chriss [address] [place] [address] Nurse Triage Social History Tobacco Use Types Packs/Day Years [...] with others, in a hotel, in a intermediate, living outside on the street, on a [...] encounter Miscellaneous Notes * Telephone Encounter - Sarah Darling RN - 08/27/2024 4:19 PM EDT Triage call Pt reports moderate to severe arm/shoulder pain radiating to hands, left arm worse thanright. Pt reports psoriatic arthritis. Pt reports in the mornings it takes 2-3 hours to be able to start moving upper extremities. Pt is not able to lift arms up to shoulder level. Pt is not taking anything for pain and had been using lidocaine patches but, no further refill. No available apts in offices this week. Advised Pt to come to [facility] today open till 8pm to be seen by provider and Pt agreeswith this disposition. Insurance is verified as active. Multiple (2) protocols were used on this call. Disposition for Call: See in Office or Video Visit within 3 Days Protocol Used: Arm Pain (Adult) Protocol-Based Disposition: See in Office or Video Visit within 3 Days Video visit not offered Positive Triage Question: * Moderate pain (e.g., interferes with normal activities) and present > 3 days * All higher-acuity triage questions were negative Care Advice Discussed: * Pain Medicines * Pain Medicines - Extra Notes and Warnings * Reasons To Call Back - Moderate pain (such as interferes with normal activities) lasts more than 3 days - Mild pain lasts more than 7 days - Arm swelling occurs - Signs of infection occur (such as spreading redness, warmth, fever) - You become worse Protocol Used: Shoulder Pain (Adult) Protocol-Based Disposition: See in Office or Video Visit within 3 Days Video visit not offered Positive Triage Question: * Moderate pain (e.g., interferes with normal activities) and present > 3 days * All higher-acuity triage questions were negative Care Advice Discussed: * Reassurance and Education - Shoulder Pain * Pain Medicines * Pain Medicines - Extra Notes and Warnings * Reasons To Call Back - Chest pain or difficulty breathing occurs - Moderate pain (such as interferes with normal activities) lasts over 3 days - Mild pain lasts over 7 days - You become worse * Telephone Encounter - Marv Jansen - 08/27/2024 3:34 PM EDT Symptoms: Arm Pain - Not From Injury, Shoulder Pain - Not From Injury, Hand or Wrist Pain - Not From Injury Outcome: Schedule an urgent appointment (within 1 hour) or talk to a nurse or provider soon Reason: Can't use the hand normally documented in this encounter Plan of Treatment [...] documented as of this encounter Care Teams Adjunct Instructor Relationship Specialty Start Date End Date Name, MD Chriss [address] [place] [address] PCP - General Family Medicine 04/26/22 Vikki Charlton Optical Effects Camera OperatorSequins Winder 07/28/23 documented as of this encounter
--- OUTSIDE RECORDS SUMMARY | 2025-08-26 20:07 | XMS_ITS | Encounter Summary ---
Author Organization [employer] Address [address] [facility] [address] [place] [address] Care Team Providers Care Store Group Manager Name Role Phone Name, Chriss DOMINGO Primary Care Provider [phone] Anabel Alonso PharmD Unavailable [phone] Reason for Visit * Reason Comments Med Refill Encounter Details Date Type Department Care Team ([facility] st Contact Info) Description 02/22/2024 Refill [facility]INE [address] [place] [address] Name, MD Chriss [address] [place] [address] Social History Tobacco Use Types Packs/Day Years Used Date Smoking Tobacco: Every Day Cigarettes Smokeless Tobacco: Never Alcohol Use Standard Drinks/Week Comments Not Currently 0 (1 standard drink = 0.6 oz pur e alcohol) Housing Stability Answer Date Recorded What is your housing situation today? I do not have housing (Staying with others, in a hotel, in a usp, living outside on the street, on a [...] off services in your home? No 02/21/2024 Comments Unknown Sex and Gender Information Value Date Recorded Sex Assigned at Female 08/29/2022 10:14 AM EDT Legal Sex Female 10:14 AM EDT Gender Identity Female 08/29/2022 10:14 AM EDT Sexual Orientation Straight 08/29/2022 10 :14 AM EDT documented as of this encounter Plan of Treatment Not on [...] Diagnoses Not on filedocumented in this encounter Care Teams Store Group Manager Relationship Specialty Start Date End Date Name, MD Chriss [address] [place] [address] PCP - General Family Medicine 04/26/22 Puia, Anabel, PharmD [address] [place] [address] Pharmacist Internal Medicine 12/22/23 03/31/24 Vikki Charlton Raw Finish Mill OperatorCriminal Profiler 07/28/23 documented as of this encounter
--- OUTSIDE RECORDS SUMMARY | 2025-08-26 20:07 | XMS_ITS | Encounter Summary ---
Author Organization [employer] Address [address] [facility] [address] [place] [address] Care Team Providers Care Litigation Examiner Name Role Phone Name, Chriss DOMINGO Primary Care Provider [phone] Anabel Alonso PharmD Unavailable Reason for Visit * Reason Onset Date Comments r/s appt 07/26/2023 Encounter Details Date Type Department Care Team ([facility] st Contact Info) Description 07/26/2023 Telephone [facility] MED[facility]INE [address] [place] [address] Name, MD Chriss [address] [place] [address] r/s appt Social History Tobacco Use Types Packs/Day Years Used Date Smoking Tobacco: Every Day Cigarettes Smokeless Tobacco: Never Alcohol Use Standard Drinks/Week Comments Not Currently 0 (1 standard drink = 0.6 oz pur e alcohol) Comments Unknown Sex and Gender Information Value Date Recorded Sex Assigned at Female 08/29/2022 10:14 AM EDT Legal Sex Female 10:14 AM EDT Gender Identity Female 08/29/2022 10:14 AM EDT Sexual Orientation Straight 08/29/2022 10 :14 AM EDT documented as of this encounter Miscellaneous Notes * Telephone Encounter - Shanae Nunes - 07/26/2023 4:23 PM EDT Tc from [employer] requesting on behalf of pt to r/s appt for derm appt on 05/22/2023 Please contact pt at [phone] documented in this encounter Plan of Treatment Not on file documented as of this encounter Visit Diagnoses Not on filedocumented in this encounter Care Teams Litigation Examiner Relationship Specialty Start Date End Date Name, MD Chriss [address] [place] [address] PCP - General Family Medicine 04/26/22 Anabel Alonso PharmD [address] [place] [address] Pharmacist Internal Medicine 12/22/23 03/31/24 Vikki Charlton Customer Advisor SpecialistDiversified Crops Supervisor 07/28/23 documented as of this encounter
--- OUTSIDE RECORDS SUMMARY | 2025-08-26 20:07 | XMS_ITS | Clinical Summary ---
Author Organization [employer] Address [address] [place] [address] Care Team Providers Care Media Production Manager Name Role Phone Name, Chriss DOMINGO Primary Care Provider [phone] Allergies Active Allergy Reactions Criticality Noted Date Comments Aspirin Low 09/08/2017 GI upset per patient on 12/22/23 Sulfa Antibiotics Angioedema High 07/09/2014 Medications naloxone (Narcan) 4 mg/0.1 mL nasal spray Administer 1 spray (4 mg) into affected nostril(s) if needed for opioid reversal. May repeat every 2-3 minutes if needed, alternating nostrils, until medical assistance becomes available. 2 each 11/04/19 25 026 Active amLODIPine (Norvasc) 5 MG tabletIndication s:Essential hypertension Take 1 tablet (5 mg) by mouth Once per day. 30 tablet 11 05/16/20 25 026 Active Blood Pressure kitIndications:E ssential hypertension For home use once a day 1 kit 05/16/20 25 Active Buprenorphine HCl-Naloxone HCl (Suboxone) 8-2 MG SL filmIndications: Uncomplicated opioid dependence ([facility]) ([facility]) Place 1 Film under the tongue Once per day for 7 days. 7 Film 03/05/20 24 025 Discontin ued(Thera py completed ) buprenorphine-na loxone (Suboxone) 2-0.5 MG per sublingual filmIndications: Uncomplicated opioid dependence ([facility]) ([facility]) Place 1 Film under the tongue Once per day for 6 days. 6 Film 03/26/20 24 025 Discontin ued(Thera py completed ) lidocaine (Lidoderm) 5 % patch Apply 1 patch topically Once per day. Remove & discard patch within 12 hours or as directed by . 30 patch 3 01/04/18 25 025 Discontin ued(Thera py completed ) Active Problems Problem Noted Date Diagnosed Date Polyuria 11/04/2024 Assessment & Plan (11/04/2024 12:02 PM EST): RO DM, order labs and fu with PCP> Dry skin dermatitis 11/04/2024 Assessment & Plan (11/04/2024 12:05 PM EST): Mostly on hands and forearms. I don't see psoriatic lesions Use cerave + triamcinolone cream compound bid x 1w then prn. FU w PCP Primary osteoarthritis of left hand 11/04/2024 Assessment & Plan (11/04/2024 12:04 PM EST): I doubt she has psoriatic arthritis but I will order other test to ro inflamatory arthritis Advised to take tylenol up to tid + diclofenac gel on the area. She has extreme dry skin which can add to the pain specially when using her hands, will rx creams as below. Chronic hepatitis C (CMS/HCC) 02/08/2023 Overview (05/16/2025): Treated many years ago Assessment & Plan (11/04/2024 12:08 PM EST): Sp rx last year. Advised to go to lab to get test of cure labs. Advised to avoid using drugs, FU with PCP Agreed to have Influenza and Covid vax today. Essential hypertension 02/08/2023 Assessment & Plan (11/04/2024 12:01 PM EST): Refill for amlodipine sent to pharmacy. Advised to take it daily. Heart murmur 02/08/2023 Obesity 02/08/2023 Opioid dependence 02/08/2023 Assessment & Plan (11/04/2024 12:07 PM EST): Off opiate replacement rx, actively using snorted opiates, not interested on suboxone or methadone at this time. Advised to avoid using drugs, encouraged to reach out to volleyball assistant coach prn Order HIV, hepatitis test Rx Narcan sent to pharmacy, advised to not use when alone Tobacco dependence syndrome 02/08/2023 Normal mammography 12/20/2020 Encounters Date Type Department Care Team Description 08/26/2025 3:15 PM EDT Office Visit [address] [address] Chriss Orozco MD Essential hypertension (Primary Dx); Hyperglycemia; Dysuria; Encounter for immunization 08/26/2025 Orders Only [address] [address] Denae Grant MD 08/25/[address] [address] Chriss Orozco MD Chart Prep 06/10/2025 Travel 06/09/[address] [address] Chriss Orozco MD Durable Medical Equipment 05/27/2025 Orders Only [facility] [address] [place] [phone] Olga Brown MD Health care maintenance (Primary Dx) 05/27/2025 Results Follow-Up [facility] [address] [place] [phone] Olga Brown MD CBC auto differential, Comprehensive Metabolic Panel, HIV-1/2 Antigen and Antibodies, Fourth Generation, with Reflexes, Additional followed-up results: 2 from Last 3 Months Immunizations Immunization Administration Dates Next Due Hep A, Adult 05/05/2023,07/18/2022 Hep B, adult 01/02/2024, 3,05/05/2023,2021 Influenza Injectable Quadriv alant Preservative Free IIV4 MDCK 01/02/2024 Influenza injectable quadriv alent preservative free 09/20/2022,10/20/2015 Influenza, seasonal, injecta ble, preservative free 08/26/2025,11/04/2024 Moderna Covid-19 Vaccine 6+ Bivalent 07/18/2022 Pfizer Covid-19 Vaccine 12+ 11/04/2024,0 04/01/2024(Deferred: Patient decision - televisit - patient agreed to get when next seen in person) Pneumococcal Conjugate PCV 20 05/16/2025 RSV Bivalent 01/02/2024 Tdap 09/20/2022 Zoster, Recombinant 01/02/2024,10/09/2023,2022 Social History Tobacco Use Types Packs/Day Years Used Date Smoking Tobacco: Every Day Cigarettes Smokeless Tobacco: Never Tobacco Cessation:Ready to Q uit: Not Asked; Counseling Given: Not Answered Alcohol Use Standard Drinks/Week Comments Not Currently 0 (1 standard drink = 0.6 oz pur e alcohol) Depression Answer Date Recorded Patient Health Questionnaire-9 Score 23 05/16/2025 Patient Health Questionnaire-9 Score 23 05/16/2025 Last PHQ-9: Questionnaire Data Not on file 0 05/16/2025 Housing Stability Answer Date Recorded What is your housing situation today? I do not have housing (Staying with others, in a hotel, in a assisted, living outside on the street, on a [...] Orientation Straight 08/29/2022 10 :14 AM EDT Last Filed Vital Signs Vital Sign Reading [...] Mass Index 21.17 08/26/2025 3:13 PM EDT Plan of Treatment Health Maintenance Due Date Last Done Comments CT Colonography 1960 Colonoscopy 1960 Colorectal Cancer Screening 1960 FIT DNA/Cologuard 1960 FIT 1960 FOBT 1960 Sigmoidoscopy 1960 Pap Smear 12/16/2024 12/16/2021 Mammogram 03/19/2025 03/19/2024, 10/27/2020 Depression Monitoring 11/16/2025 05/16/2025, 025 Alcohol/Substance Use Screening 05/16/2026 05/16/2025 Disability Screening 05/16/2026 05/16/2025 SDOH Screening 05/16/2026 05/16/2025 Tobacco Screening 08/26/2026 08/26/2025 Cervical Cancer Screening 12/16/2026 HPV/Cotest 12/16/2026 12/16/2021, 11/30, 12/26/2018 Lipid Panel 03/06/2029 03/06/2024 DTaP/Tdap/Td Vaccines (2 - Td or Tdap) 09/20/2032 09/20/2022 Hepatitis A Vaccines Completed 05/05/2023, 07/18/20 Hepatitis B Vaccines Completed 01/02/2024, 10/09/2023, 05/05/2023, Additional history exists RSV Patients and Patients Aged 60 years or older Completed 01/02/2024 Zoster Vaccines Completed 01/02/2024, 09/29, 05/05/2023 COVID-19 Vaccine Completed 11/04/2024, , 05/17/2022, Additional history exists Pneumococcal Vaccine: 50+ Years Completed 05/16/2025 HIV Screening Completed 05/26/2025, 03/2025, 03/06/2024 Influenza Vaccine Completed 08/26/2025, , 01/02/2024, Additional history exists HIB Vaccines Aged Out No longer eligi ble based on patient's age to complete this topic HPV Vaccines Aged Out No longer eligi ble based on patient's age to complete this topic IPV Vaccines Aged Out No longer eligi ble based on patient's age to complete this topic Meningococcal B Vaccine Aged Out No l onger eligible based on patient's age to complete this topic Meningococcal Vaccine Aged Out No calixto gerson eligible based on patient's age to complete this topic RSV under 20 months Aged Out No longe r eligible based on patient's age to complete this topic Rotavirus Vaccines Aged Out No longer eligible based on patient's age to complete this topic Goals Goal Patient Goal Type Associated Problems Recent Progress Patient-Stated? Author Record your blood pressure once per day Blood Pressure No Puia, Anabel, PharmD Blood Pressure < 140/90 Blood Pressure 110/84(2024 3:13 PM EDT) No Puia, Anabel, PharmD Smoking cessation General No Puia, Anabel, PharmD Patient will adhere to medication regimen General No Puia, Anabel, PharmD Procedures Procedure Name Priority Date/Time Associated Diagnosis Comments HEPATIC FUNCTION PANEL Routine 08/26/2025 4:22 PM EDT POCT GLYCATED HEMOGLOBIN, TOTAL Routine 08/26/2025 4:05 PM EDT Hyperglycemia URINALYSIS, COMPLETE, WITH REFLEX TO CULTURE Routine 05/26/2025 11:27 AM EDT Stress incontinence of urine RPR (MONITOR) W/REFL TITER Routine 05/26/2025 11:27 AM EDT History of latent syphilis History of RPR test HIV 1/2 ANTIGEN/ANTIBODY, FOURTH GENERATION W/RFL Routine 05/26/2025 11:27 AM EDT Polysubstance dependence (CMS/HCC) HEPATITIS C VIRAL RNA, QUANTITATIVE, REAL-TIME PCR Routine 05/26/2025 11:27 AM EDT Chronic hepatitis C without hepatic coma (CMS/HCC) COMPREHENSIVE METABOLIC PANEL Routine 05/26/2025 11:27 AM EDT Polysubstance dependence (CMS/HCC) Chronic hepatitis C without hepatic coma (CMS/HCC) CBC WITH AUTO DIFFERENTIAL Routine 05/26/2025 11:27 AM EDT Polysubstance dependence (CMS/HCC) XR LUMBAR SPINE 2-3 VIEWS Routine 05/26/2025 11:23 AM EDT Chronic low back pain without sciatica, unspecified back pain laterality XR KNEE 1-2 VIEWS BILATERAL Routine 05/26/2025 11:20 AM EDT Chronic pain of both knees CULTURE, URINE, ROUTINE Routine 05/26/2025 12:00 AM EDT BI MAMMOGRAM SCREENING TOMOSYNTHESIS BILATERAL Routine 03/19/2024 11:15 AM EDT LIPID PANEL, STANDARD Routine 03/06/2024 2:22 PM EDT HPV GENOTYPES 16,18/45 Routine 12/16/2021 11:51 AM EST THINPREP IMAGING PAP AND HPV MRNA E6/E7, WITH CT/NG, TRICHOMONAS Routine 12/16/2021 11:51 AM EST from Last 3 Months or Most Recently Relevant to Health Maintenance Results * Hepatic Function Panel (08/26/2025 4:22 PM EDT) Bilirubin, Total 0.2 0.0 - 1.0 mg/dL [facility] Bilirubin, Direct <0.2 0.0 - 0.5 mg/dL [facility] Aspartate Amino Transferase 20 5 - 31 U/L [facility] Alanine Aminotransferase 16 0 - 31 U/L [facility] Total Protein 7.6 6.5 - 8.0 g/dL [facility] Albumin Level 4.5 3.5 - 5.0 g/dL [facility] Alkaline Phosphatase 86 39 - 117 U/L [facility] 08/26/2025 4:22 PM EDT 08/26/2025 6:00 PM EDT Denae Grant MD LAB BLOOD ORDERABLES Final R esult [facility] [address] [place] [phone] * POCT Hgb A1c (08/26/2025 4:05 PM EDT) Hemoglobin A1C 5.6 4.0 - 5.7 % QC Media Lot # [id number] Lot# Expiration Date Blood 08/26/2025 4:05 PM EDT us Chriss Orozco MD POINT OF CARE TEST ENTER/EDIT OR DERABLES Final Result * (ABNORMAL) Urinalysis, Complete, with Reflex to Culture (05/26/2025 11:27 AM EDT) Color Urine Dark Yellow [facility] Appearance Urine Turbid [facility] PH 5.5 5.0 - 9.0 [facility] Glucose Urine UA Negative Negative mg/dL [facility] Urine Blood Negative Negative [facility] Specific Endeavor - Urine 1.025 1.005 - 1.025 [facility] Urine Protein 30 (1+)(A) Neg-Trace mg/dL [facility] Urine Ketones Trace Negative mg/dL [facility] Nitrite Urine Negative Negative [facility] Leukocyte Esterase Urine Moderate (2+)(A) Negative [facility] RBC Urine 0-2 0 - 2 /HPF [facility] Urine WBC >50(A) 0 - 5 /HPF [facility] Urine Squamous Epithelial Cell >20 0 - 2 /HPF [facility] CALCIUM OXALATE CRYSTAL, UR Present [facility] Urine Bacteria 3+ None Seen [facility] Hyaline Casts, Urine 6-10 0 - 2 /LPF [facility] Urine 05/26/2025 11:2 7 AM EDT 05/26/2025 1:02 PM EDT Narrative [facility] - 05/26/2025 1:28 PM EDT Urine, Clean Catch us Chriss Orozco MD LAB URINE ORDERABLES Final Resul t Performing Organization Address [facility] de Phone Number [facility] [address] [place] [address] [phone] * Hepatitis C Viral RNA, Quantitative, Real-Time PCR (05/26/2025 11:27 AM EDT) Hepatitis C Viral Load <15 NOT DETECTED NOT DETECTED IU/mL [facility] HCV Log PCR <1.18 NOT DETECTED NOT DETECTED Log IU/mL [facility] Comment:For additional infor tania, please refer tohttp://education.[employer]/faq/SYT80c4(This link is being provided for informational/educational purposes only.)THIS TEST WAS PERFORMED AT:[facility] [place] [phone] GOODMAN MD Blood Venous blood specimen / Unknown 05/26/2025 11:27 AM EDT 05/26/2025 1:03 PM EDT us Chriss Orozco MD LAB BLOOD ORDERABLES Final Resul t Performing Organization Address [facility]/ZIP Co de Phone Number [facility] [address] [place] [address] [phone] * CBC auto differential (05/26/2025 11:27 AM EDT) White Blood Count 6.4 4.8 - 10.8 X10*3/uL [facility] Red Blood Count 4.60 4.20 - 5.50 X10*6/uL [facility] Hemoglobin 13.0 12.0 - 16.0 g/dl [facility] Hematocrit 41.4 37.0 - 47.0 % [facility] Mean Corpuscular Volume 90.0 80.0 - 98.0 fL [facility] Mean Corpuscular Hemoglobin 28.3 27.0 - 33.0 pg [facility] Mean Corpuscular HGB Conc 31.4 31.0 - 35.0 g/dl [facility] Red Cell Distribution Width 13.4 11.0 - 16.0 % [facility] Platelet Count 267 160 - 400 X10*3/uL [facility] Mean Platelet Volume 9.8 9.4 - 12.3 fL [facility] Neutrophils Percent Auto 59.7 45 - 73 % [facility] Imm Gran Pct Auto 0.3 0.0 - 0.4 % [facility] Lymphocytes Percent Auto 29.9 20 - 40 % [facility] Monocytes Percent Auto 7.4 2 - 11 % [facility] Eosinophils Percent Auto 2.4 0 - 4 % [facility] Basophils Percent Auto 0.3 0 - 2 % [facility] NRBC Pct Auto 0.0 0.0 - 0.2 /100WBC [facility] Neutrophils Absolute Auto 3.8 2.0 - 8.3 x10*3/uL [facility] Imm Gran Abs Auto 0.02 0.00 - 0.03 X10*3/uL [facility] Lymphocytes Absolute Auto 1.9 1.2 - 4.9 X10*3/uL [facility] Monocytes Absolute Auto 0.5 0.1 - 1.2 X10*3/uL [facility] Eosinophils Absolute Auto 0.2 0.0 - 0.4 X10*3/uL [facility] Basophils Absolute Auto 0.0 0.0 - 0.2 X10*3/uL [facility] NRBC Abs Auto 0.000 0.0 - 0.012 X10*3/uL [facility] Blood Venous blood specimen / Unknown 05/26/2025 11:27 AM EDT 05/26/2025 1:03 PM EDT us Chriss Orozco MD LAB BLOOD ORDERABLES Final Resul t Performing Organization Address [facility] Co de Phone Number [facility] [address] [place] [address] [phone] * RPR (Monitor) with Reflex to??Titer (05/26/2025 11:27 AM EDT) RPR (Monitor) w/Refl Titer NON-REACTI VE NON-REACT CYNDI [facility] Comment:THIS TEST WAS PERFOR MED AT:[facility] [place] [phone] GOODMAN MD Rapid Plasma Reagin Ab Titer TNP [facility] Blood Venous blood specimen / Unknown 05/26/2025 11:27 AM EDT 05/26/2025 1:03 PM EDT us Chriss Orozco MD LAB BLOOD ORDERABLES Final Resul t Performing Organization Address [facility] Co de Phone Number [facility] [address] [place] [address] [phone] * HIV-1/2 Antigen and Antibodies, Fourth Generation, with Reflexes (05/26/2025 11:27 AM EDT) HIV AB/AG Nonreactive Nonreactive [facility] Comment:HIV-1 p24 Ag and/or HIV-1/HIV-2 Ab not detected.A test result that is nonreactive does not exclude thepossibility of exposure to or infection with HIV-1 and/orHIV-2. Nonreactive results in this assay for individualswith prior exposure to HIV-1 and/or HIV-2 may be due toantigen and antibody levels that are below the limit ofdetection of this assay.[employer] HIV Ag/Ab Combo assay result andsupplemental assay results should be interpreted inconjunction with the patient's clinical presentation,history and other laboratory results. If the results areinconsistent with clinical evidence, additional testing issuggested to confirm the result. Blood Venous blood specimen / Unknown 05/26/2025 11:27 AM EDT 05/26/2025 1:03 PM EDT us Chriss Orozco MD LAB BLOOD ORDERABLES Final Resul t [facility] [address] [place] [phone] * (ABNORMAL) Comprehensive Metabolic Panel (05/26/2025 11:27 AM EDT) Sodium 142 135 - 145 mmol/L [facility] Potassium 4.5 3.3 - 5.1 mmol/L [facility] Comment:Slight Hemolysis.Int erpret result with caution. Chloride 104 96 - 108 mmol/L [facility] Carbon Dioxide 26 22 - 29 mmol/L [facility] Anion Gap 17 12 - 20 [facility] Urea Nitrogen (BUN) 14 9 - 16 mg/dL [facility] Creatinine, Serum 1.04 0.5 - 1.4 mg/dL [facility] Estimated Glomerular Filt Rate 53 [facility] Comment:Chronic Kidney Disea se: Estimated GFR < 60 mL/min/1.83j1Yiqthp Kidney Disease: Estimated GFR < 15 mL/min/1.73m2 Glucose 118(H) 60 - 115 mg/dL [facility] Calcium 9.8 8.4 - 10.2 mg/dL [facility] Bilirubin, Total 0.4 0.0 - 1.0 mg/dL [facility] Aspartate Amino Transferase 27 5 - 31 U/L [facility] Comment:Slight Hemolysis.Int erpret result with caution. Alanine Aminotransferase 15 0 - 31 U/L [facility] Total Protein 7.2 6.5 - 8.0 g/dL [facility] Albumin Level 4.3 3.5 - 5.0 g/dL [facility] Alkaline Phosphatase 81 39 - 117 U/L [facility] Blood Venous blood specimen / Unknown 05/26/2025 11:27 AM EDT 05/26/2025 1:03 PM EDT us Chriss Orozco MD LAB BLOOD ORDERABLES Final Resul t Performing Organization Address City/State/[facility] Co de Phone Number [facility] [address] [place] [phone] * XR Lumbar Spine 2-3 Views (05/26/2025 11:23 AM EDT) Anatomical Region Laterality Modality Spine, L-spine Radiographic Ashwini ging 05/26/2025 11:2 3 AM EDT Narrative 05/26/2025 1:37 PM EDT [place] [address] XRay Report Signed Patient: Adela Bradley MR#: [id number] : 1960 Acct:[id number] Age/Sex: 65 / F ADM Date: 05/26/25 Loc: [facility] Attending Dr: Chriss Orozco MD Ordering Physician: Chriss Orozco MD Date of Service: 05/26/25 Procedure(s): XR lumbar spine 2-3V Accession Number(s): [id number] cc: Chriss Orozco MD EXAMINATION: XR LUMBOSACRAL SPINE CLINICAL INFORMATION: Chronic low back pain COMPARISON: None available. TECHNIQUE: Three views of the lumbosacral spine. FINDINGS: There are 5 nonrib bearing lumbar segment. There is 13 degrees levoscoliosis. L2-3 demonstrates mild disc space narrowing with anterior osteophytes. L3-4 demonstrates mild disc space narrowing and anterior osteophytes. L4-5 demonstrates grade 1 anterolisthesis, moderate disc space narrowing, and anterior osteophytes. There is facet sclerosis. L5-S1 demonstrates facet sclerosis and osteophytes. XR/XR lumbar spine 2-3V IMPRESSION: Multilevel degenerative changes and mild scoliosis. Electronically signed by: Cb Quarles MD 05/26/2025 01:34 PM EDT RP Dictated By: Cb Quarles MD Signed By: <Electronically signed by Cb Quarles MD in OV> 05/26/25 1334 DD/ 1123 TD/TT: 05/26/25 1200 Machining Engineer: Procedure Note Donotuseinterpreter, Image - 05/26/[address] [address] XRay Report Signed Patient: Adela Bradley TMR#: [id number] : 1Acct:[id number] Age/Sex: 65 / FADM Date: 05/26/25 Loc: HO.[facility] Attending Dr: Chriss Orozco MD Ordering Physician: Chriss Orozco MD Date of Service: 05/26/25 Procedure(s): XR lumbar spine 2-3V Accession Number(s): [id number] cc: Chriss Orozco MD EXAMINATION: XR LUMBOSACRAL SPINE CLINICAL INFORMATION: Chronic low back pain COMPARISON: None available. TECHNIQUE: Three views of the lumbosacral spine. FINDINGS: There are 5 nonrib bearing lumbar segment. There is 13 degrees levoscoliosis. L2-3 demonstrates mild disc space narrowing with anterior osteophytes. L3-4 demonstrates mild disc space narrowing and anterior osteophytes. L4-5 demonstrates grade 1 anterolisthesis, moderate disc space narrowing, and anterior osteophytes. There is facet sclerosis. L5-S1 demonstrates facet sclerosis and osteophytes. XR/XR lumbar spine 2-3V IMPRESSION: Multilevel degenerative changes and mild scoliosis. Electronically signed by: Cb Quarles MD 05/26/2025 01:34 PM EDT RP Dictated By: Cb Quarles MD Signed By: <Electronically signed by Cb Quarles MD in OV> 05/26/25 1334 DD/ 1123 TD/TT: 05/26/25 1200 Machining Engineer: Chriss Orozco MD IM XR PROCEDURES Final Result * XR Knee 1-2 Views Bilateral (05/26/2025 11:20 AM EDT) Anatomical Region Laterality Modality Lower Extremities, Knee Bilateral Radiogra phic Imaging 05/26/2025 11:2 0 AM EDT Narrative 05/26/2025 1:29 PM EDT [place] [address] XRay Report Signed Patient: Adela Bradley MR#: [id number] : 1960 Acct:[id number] Age/Sex: 65 / F ADM Date: 05/26/25 Loc: [facility] Attending Dr: Chriss Orozco MD Ordering Physician: Chriss Orozco MD Date of Service: 05/26/25 Procedure(s): XR Knee Erickson 1or 2V Accession Number(s): [id number] cc: Chriss Orozco MD Exam: X-ray, bilateral knees.XR KNEE 1-2 VIEWS BILATERAL TECHNIQUE: AP standing and lateral views lower extremity joint, bilateral knees INDICATION: Chronic bilateral knee pain COMPARISON: None available. FINDINGS: RIGHT KNEE: There is minimal narrowing of the medial greater than lateral joint space. No definite joint effusion. There are no osteophytes. There are no soft tissue calcifications. LEFT KNEE: There is minimal narrowing of the medial greater than lateral joint space. No definite joint effusion. There are no osteophytes. There are no soft tissue calcifications. XR/XR Knee Erickson 1or 2V IMPRESSION: Right knee: Mild nonspecific joint space narrowing. Left knee: Mild nonspecific joint space narrowing. Electronically signed by: Cb Quarles MD 05/26/2025 01:26 PM EDT Dictated By: Cb Quarles MD Signed By: <Electronically signed by Cb Quarles MD in OV> 05/26/25 1326 DD/ 1120 TD/TT: 05/26/25 1200 Machining Engineer: Procedure Note Donotuseinterpreter, Image - 05/26/[address] [address] XRay Report Signed Patient: Adela Bradley TMR#: [id number] : 1Acct:[id number] Age/Sex: 65 / FADM Date: 05/26/25 Loc: HO.[facility] Attending Dr: Chriss Orozco MD Ordering Physician: Chriss Orozco MD Date of Service: 05/26/25 Procedure(s): XR Knee Erickson 1or 2V Accession Number(s): [id number] cc: Chriss Orozco MD Exam: X-ray, bilateral knees.XR KNEE 1-2 VIEWS BILATERAL TECHNIQUE: AP standing and lateral views lower extremity joint, bilateral knees INDICATION: Chronic bilateral knee pain COMPARISON: None available. FINDINGS: RIGHT KNEE: There is minimal narrowing of the medial greater than lateral joint space. No definite joint effusion. There are no osteophytes. There are no soft tissue calcifications. LEFT KNEE: There is minimal narrowing of the medial greater than lateral joint space. No definite joint effusion. There are no osteophytes. There are no soft tissue calcifications. XR/XR Knee Erickson 1or 2V IMPRESSION: Right knee: Mild nonspecific joint space narrowing. Left knee: Mild nonspecific joint space narrowing. Electronically signed by: Cb Quarles MD 05/26/2025 01:26 PM EDT Dictated By: Cb Quarles MD Signed By: <Electronically signed by Cb Quarles MD in OV> 05/26/25 1326 DD/ 1120 TD/TT: 05/26/25 1200 Machining Engineer: Chriss Orozco MD IM XR PROCEDURES Final Result * Culture, Urine, Routine (05/26/2025 12:00 AM EDT) Urine Urine specimen obtained by clean catch procedure / Unknown 05/26/2025 05/26/2025 Comment:UACC Narrative [facility] - 05/27/2025 8:59 AM EDT Urine Culture No growth. Specimen Source: Urine clean catch Chriss Orozco MD LAB MICROBIOLOGY - GENERAL ORDER GIANNI Final Result [facility] [address] [place] [address] [phone] * BI Mammogram Screening Tomosynthesis Bilateral (03/19/2024 11:15 AM EDT) Anatomical Region Laterality Modality Breast Bilateral Mammography 03/19/2024 11:1 5 AM EDT Narrative 04/19/2024 7:05 AM EDT [address] [place] [address] Mammography Report Signed Patient: Adela Bradley MR#: [id number] : 1960 Acct:[id number] Age/Sex: 64 / F ADM Date: 03/19/24 Loc: HO.MAMMO Attending Dr: Chriss Orozco MD Ordering Physician: Chriss Orozco MD Results: 1Negative Date of Service: 03/19/24 Follow Up: 1 Year From Orig inal Mammogram Procedure(s): MM tomosynthesis screening BI Accession Number(s): [id number] cc: Chriss Orozco MD EXAMINATION: MM SCREENING DIGITAL BREAST TOMOSYNTHESIS, BILATERAL CLINICAL INFORMATION: Screening. Asymptomatic. COMPARISON: Mammography: This study is compared with prior exams dating back to 2009. TECHNIQUE: Digital breast tomosynthesis is performed in both the craniocaudal and mediolateral oblique views along with computer-aided detection (CAD). Synthesized 2D images are generated from the tomosynthesis. FINDINGS: The breasts are heterogeneously dense, which may obscure small masses (ACR BI-RADS breast composition Category c). There are no significant masses, abnormal calcifications, or other abnormalities. MM/MM tomosynthesis screening BI IMPRESSION: No mammographic evidence of malignancy. ASSESSMENT: BI-RADS BI-RADS 1 - Negative RECOMMENDATION: Routine annual mammography screening. 1 year F/U This examination should not preclude the clinical evaluation of a suspicious palpable abnormality. This patient's information was entered into a reminder system with a target due date for their next mammogram. Dictated By: Abi Connell MD Signed By: <Electronically signed by Abi Connell MD in OV> 04/19/24 07 DD/ 1115 TD/TT: Machining Engineer: Procedure Note Donotuseinterpreter, Image - [facility]/19/[facility] [address] [place] [address] Mammography Report Signed Patient: Adela Bradley TMR#: [id number] : 1960cct:[id number] Age/Sex: 64 / FADM Date: 03/19/24 Loc: [facility] Attending Dr: Chriss Orozco MD Ordering Physician: Chriss Orozco MDResults: 1Negative Date of Service: 03/19/24Follow Up: 1 Year From Orig inal Mammogram Procedure(s): MM tomosynthesis screening BI Accession Number(s): [id number] cc: Chriss Orozco MD EXAMINATION: MM SCREENING DIGITAL BREAST TOMOSYNTHESIS, BILATERAL CLINICAL INFORMATION: Screening. Asymptomatic. COMPARISON: Mammography: This study is compared with prior exams dating back to 2009. TECHNIQUE: Digital breast tomosynthesis is performed in both the craniocaudal and mediolateral oblique views along with computer-aided detection (CAD). Synthesized 2D images are generated from the tomosynthesis. FINDINGS: The breasts are heterogeneously dense, which may obscure small masses (ACR BI-RADS breast composition Category c). There are no significant masses, abnormal calcifications, or other abnormalities. MM/MM tomosynthesis screening BI IMPRESSION: No mammographic evidence of malignancy. ASSESSMENT: BI-RADS BI-RADS 1 - Negative RECOMMENDATION: Routine annual mammography screening. 1 year F/U This examination should not preclude the clinical evaluation of a suspicious palpable abnormality. This patient's information was entered into a reminder system with a target due date for their next mammogram. Dictated By: Abi Connell MD Signed By: <Electronically signed by Abi Connell MD in OV> 04/19/24 0701 DD/ 1115 TD/TT: Machining Engineer: Chriss Name IMG BI PROCEDURES Final Result * Lipid Panel, Standard (03/06/2024 2:22 PM EDT) Triglycerides 52 <150 mg/dL [facility] Comment:Desirable Triglyceri de: less than 150 mg/dLBorderline High Triglyceride 150-199 mg/dLHigh Triglyceride: 200-499 mg/dLVery High Triglyceride: greater than or equal to 5OO mg/dL Cholesterol 145 <200 mg/dL [facility] Comment:Desirable Cholestero l: less than 200 mg/dLBorderline High Cholesterol: 200-239 mg/dLHigh Cholesterol: greater than 239 mg/dL LDL Cholesterol Calculated 71 <100 mg/dL [facility] Comment:Desirable LDL: less than 100 mg/dLNear Optimal/Above Optimal LDL: 110- 129 mg/dLBorderline High LDL: 130-159 mg/dLHigh LDL: 160-189 mg/dLVery High LDL: greater than or equal to 190 mg/dL HDL Cholesterol 64 >40 mg/dL [facility] Comment:Desirable HDL: great er than 40 mg/dL Note: This HDL assay may give artificially low results in patients with liver disease. 03/06/2024 2:22 PM EDT 03/06/2024 2:22 PM EDT us Chriss Orozco MD LAB BLOOD ORDERABLES Final Resul t [facility] [address] [place] [phone] * (ABNORMAL) THINPREP TIS PAP AND HPV mRNA E6/E7, CT/NG, TRICH (12/16/2021 11:51 AM EST) Chlamydia trachomatis RNA, TMA, Urogenital NOT DETECTED NOT DETECTED [facility] Clinical Information: None given [facility] COMMENT SEE COMMENT [facility] Comment: The analytical performance characteristics of this assay, when used to test SurePath(TM) specimens have been determined by [employer]. The modifications have not been cleared or approved by the FDA. This assay has been validated pursuant to the CLIA regulations and is used for clinical purposes. For additional information, please refer to https://My [employer] Database.[employer]/faq/VSR186 (This link is being provided for information/ educational purposes only.) COMMENT SEE COMMENT [facility] Comment: EXPLANATORY NOTE: The Pap is a screening test for cervical cancer. It is not a diagnostic test and is subject to false negative and false positive results. It is most reliable when a satisfactory sample, regularly obtained, is submitted with relevant clinical findings and history, and when the Pap result is evaluated along with historic and current clinical information. COMMENT: SEE COMMENT [facility] Comment: This Pap test has been evaluated with computer assisted technology. Mart portions of this case have been reviewed by one or more pathologists. Assistant Boiler Operator: SEE COMMENT [facility] Comment: WAC, CT(ASCP) CT screening location: [place] [address] General Categorization: EPITHELIAL CELL ABNORMALITY(A) [facility] HPV nRNA E6/E7 Detected(A) Not Detected [facility] Comment: Methodology: Fitness Specialist-Mediated Amplification This assay detects E6/E7 viral messenger RNA (mRNA) from 14 high-risk HPV types (16,18,31,33,35,39,45,51,52,56,58,59,66,68). The analytical performance characteristics of this assay have been determined by [employer]. The modifications have not been cleared or approved by the FDA. This assay has been validated pursuant to the CLIA regulations and is used for clinical purposes. For additional information, please refer to http://My [employer] Database.[employer]/faq/MTX325r0 (This link if provided for information/ educational purposes only.) Interpretation/Re sult: Low Grade Squamous Intraepithelial Lesion (LSIL)(A) [facility] LMP: NONE GIVEN [facility] Neisseria gonorrhoeae RNA, TMA, Urogenital NOT DETECTED NOT DETECTED [facility] PATHOLOGIST: SEE COMMENT [facility] Comment: Brenda Beltran M.D., Board Certified in Anatomic and Clinical Pathology (electronic signature) Consulting Pathologist [facility] [phone] Prev. BX: NONE GIVEN [facility] Prev. PAP: 11/2018 NIL/HPV NEG [facility] SOURCE: None given [facility] Statement Of Adequacy: SEE COMMENT [facility] Comment: Satisfactory for evaluation. Endocervical/transformation zone component present. Trichomonas vaginalis, QL, TMA, PAP Vial NOT DETECTED NOT DETECTED [facility] Comment: The analytical performance characteristics of this assay have been determined by [employer]. The modifications have not been cleared or approved by the FDA. This assay has been validated pursuant to the CLIA regulations and is used for clinical purposes. For additional information, please refer to http://education.[employer]/ faq/Trichomonastma (This link is being provided for information/ educational purposes only.) 12/16/2021 11:5 1 AM EST [facility] PATHOLOGY ORDERABLES Final Result Performing Organization Address [facility] de Phone Number [facility] [address] * HPV GENOTYPES 16,18/45 (12/16/2021 11:51 AM EST) HPV 16 RNA NOT DETECTED NOT DETECTED [facility] HPV 18/45 RNA NOT DETECTED NOT DETECTED [facility] Comment: Methodology: Fitness Specialist Mediated Amplification The analytical performance characteristics of this assay have been determined by [employer]. The modifications have not been cleared or approved by the FDA. This assay has been validated pursuant to the CLIA regulations and is used for clinical purposes. 12/16/2021 11:5 1 AM EST Ivanna Villaseñor [facility] CYTOLOGY ORDERABLES F inal Result Performing Organization Address [facility] de Phone Number [facility] [address] from Last 3 Months or Most Recently Relevant to Health Maintenance Insurance [facility] C3 Care Teams Media Production Manager Relationship Specialty Start Date End Date Name, MD Chriss [address] [place] [id number] PCP - General Family Medicine 04/26/22 Vikki Charlton Nylon Hot Wire CutterSoftware Program Manager 07/28/23
--- OUTSIDE RECORDS SUMMARY | 2025-08-26 20:07 | XMS_ITS | Encounter Summary ---
Author Organization [employer] Address [address] [place] [address] Care Team Providers Care Auto Fleet Maintenance Manager Name Role Phone Name, Chriss DOMINGO Primary Care Provider [phone] Anabel Alonso PharmD Unavailable [phone] Reason for Visit * Reason Onset Date Comments Nurse Triage 10/25/2023 Encounter Details Date Type Department Care Team ([facility] st Contact Info) Description 10/25/2023 Telephone [facility] [address] [place] [address] Name, MD Chriss [address] [place] [address] Nurse Triage Social History Tobacco Use Types [...] Telephone Encounter - Sarah Darling RN - 10/25/2023 4:40 PM EST Triage call Pt reports low back pain of chronic nature which has worsened last 2 weeks. Pt is usinga rolator for mobility and is having a hard time getting out of bed in the morning and moving well.Pt reports using tylenol and lidocaine patches for pain. Pt reports numbness in bilateral hands andsome radiation of pain both legs at times as well. Pt reports good effect from biofreeze but, not consistently. Pt has used all home care advised and requests to see provider. Apt with DURABLE MEDICAL EQUIPMENT REPAIRER Shahida 11/06/22 @ 100pm. Insurance is verified as active prior to booking. Protocol Used: Back Pain (Adult) Protocol-Based Disposition: See in Office or Video Visit within 2 Weeks Video visit not offered Positive Triage Question: * Back pain is a chronic symptom (recurrent or ongoing AND lasting > 4 weeks) * All higher-acuity triage questions were negative Care Advice Discussed: * Reassurance and Education - Back Pain * Cold or Heat * Sleep * Activity * Pain Medicines * Reasons To Call Back - Fever occurs - Numbness or weakness occurs, or bowel/bladder problems - Pain begins to shoot into the leg - Pain persists over 2 weeks - Pain becomes worse - You become worse * Telephone Encounter - Malou Tai - 10/25/2023 4:11 PM EST Symptom: Back Pain - Not From Injury Outcome: Schedule an appointment to be seen within 3 days Reason: Caller denied all higher acuity questions, states tylenol and lidocaine patches The caller accepted this outcome Please contact pt at [phone] documented in this encounter Plan of Treatment Not on file documented as of this encounter Visit Diagnoses Not on filedocumented in this encounter Care Teams Auto Fleet Maintenance Manager Relationship Specialty Start Date End Date Name, MD Chriss [address] [place] [address] PCP - General Family Medicine 04/26/22 Anabel Alonso PharmD [address] [place] [address] Pharmacist Internal Medicine 12/22/23 03/31/24 Vikki Charlton Intranet SpecialistAddress Change Clerk 07/28/23 documented as of this encounter
--- OUTSIDE RECORDS SUMMARY | 2025-08-26 20:07 | XMS_ITS | Encounter Summary ---
Author Organization [employer] Address [address] [facility] [address] [place] [address] Care Team Providers Care Management Professionals Name Role Phone Name, Chriss DOMINGO Primary Care Provider [phone] Reason for Visit * Reason Onset Date Comments Chart Prep 08/25/2025 Encounter Details Date Type Department Care Team ([facility] st Contact Info) Description 08/25/2025 Telephone [facility] MEDICINE [address] [place] [address] Name, MD Chriss [address] [place] [address] Chart Prep Social History Tobacco Use Types Packs/Day Years [...] with others, in a hotel, in a jail, living outside on the street, on a [...] encounter Miscellaneous Notes * Telephone Encounter - Martin Keller MA - 08/25/2025 1:51 PM EDT Chart Prep Labs: CTNG LAB NEEDS TO BE COMP Images: done Referrals: complete Vaccines due: Flu Screenings: colonoscopy and mammogram Overdue care gaps: Tobacco documented in this encounter Plan of Treatment [...] documented as of this encounter Care Teams Management Professionals Relationship Specialty Start Date End Date Name, MD Chriss [address] [place] [address] PCP - General Family Medicine 04/26/22 Vikki Charlton Clearing Tub WorkerE Business Consultant 07/28/23 documented as of this encounter
--- OUTSIDE RECORDS SUMMARY | 2025-08-26 20:07 | XMS_ITS | Encounter Summary ---
Author Organization [employer] Address [address] [place] [address] Care Team Providers Care Stereo Equipment Salesperson Name Role Phone Name, Chriss DOMINGO Primary Care Provider [phone] Encounter Details Date Type Department Care Team ([facility] st Contact Info) Description 08/26/2025 Orders Only [facility] MEDICINE [address] [place] [address] Denae Grant MD [address] [place] [address] Social History Tobacco Use Types Packs/Day Years [...] FUNCTION PANEL Routine 08/26/2025 4:22 PM EDT documented in this encounter Results * Hepatic Function Panel (08/26/2025 4:22 PM EDT) Bilirubin, Total 0.2 0.0 - 1.0 mg/dL [facility] Bilirubin, Direct <0.2 0.0 - 0.5 mg/dL [facility] Aspartate Amino Transferase 20 5 - 31 U/L [facility] Alanine Aminotransferase 16 0 - 31 U/L [facility] Total Protein 7.6 6.5 - 8.0 g/dL [facility] Albumin Level 4.5 3.5 - 5.0 g/dL [facility] Alkaline Phosphatase 86 39 - 117 U/L [facility] 08/26/2025 4:22 PM EDT 08/26/2025 6:00 PM EDT Denae Grant MD LAB BLOOD ORDERABLES Final R esult [facility] [address] [place] [phone] documented in this encounter Visit Diagnoses Not on filedocumented in this encounter Additional Health Concerns Assessment Noted Time PHQ-9 Depression Total Score: 23 025 11:28 AM EDT documented as of this encounter Care Teams Stereo Equipment Salesperson Relationship Specialty Start Date End Date Name, MD Chriss [address] [place] [address] PCP - General Family Medicine 04/26/22 Vikki Charlton Scow Derrick OperatorClinical Evaluator 07/28/23 documented as of this encounter
--- OUTSIDE RECORDS SUMMARY | 2025-08-26 20:07 | XMS_ITS | Encounter Summary ---
Author Organization [employer] Address [address] [facility] [address] [place] [address] Care Team Providers Care Promotional Marketing Agent Name Role Phone Name, Chriss DOMINGO Primary Care Provider [phone] Anabel Alonso PharmD Unavailable [phone] Reason for Visit * Reason Onset Date Comments Referral 12/11/2023 Encounter Details Date Type Department Care Team ([facility] st Contact Info) Description 12/11/2023 Telephone [facility] MEDICINE [address] [place] [address] Name, MD Chriss [address] [place] [address] Referral Social History Tobacco Use Types Packs/Day Years [...] encounter Miscellaneous Notes * Telephone Encounter - Naveed Ibrahim RN - 12/13/2023 3:02 PM EST Noted. Called pt. To schedule apt. No answer. Mail box is full not able to LVM. * Telephone Encounter - Naveed Ibrahim RN - 12/13/2023 2:44 PM EST FYI Looking for referral for ortho. T/C to [phone] for further information, No answer. Mail box is full, Not able to LVM. * Telephone Encounter - Malou Tai - 12/11/2023 12:20 PM EST Tc from david with ICP states pt is requesting a referral to orthopaedics due to back pain. States patches and medication is not helping. documented in this encounter Plan of Treatment Not on file documented as of this encounter Visit Diagnoses Not on filedocumented in this encounter Care Teams Promotional Marketing Agent Relationship Specialty Start Date End Date Name, MD Chriss [address] [place] [address] PCP - General Family Medicine 04/26/22 Anabel Alonso PharmD [address] [place] [address] Pharmacist Internal Medicine 12/22/23 03/31/24 Vikki Charlton Rv DetailerResearch Group Director 07/28/23 documented as of this encounter
--- OUTSIDE RECORDS SUMMARY | 2025-08-26 20:07 | XMS_ITS | Encounter Summary ---
Author Organization [employer] Address [address] [facility] [address] [place] [address] Care Team Providers Care Screen Tender Name Role Phone Name, Chriss DOMINGO Primary Care Provider [phone] Reason for Visit * Reason Onset Date Comments Appointment Request 12/17/2024 Encounter Details Date Type Department Care Team ([facility] st Contact Info) Description 12/17/2024 Telephone [facility] MEDICINE [address] [place] [address] Name, MD Chriss [address] [place] [address] Appointment Request Social History Tobacco Use Types [...] with others, in a hotel, in a correction, living outside on the street, on a [...] documented as of this encounter Care Teams Screen Tender Relationship Specialty Start Date End Date Name, MD Chriss [address] [place] [address] PCP - General Family Medicine 04/26/22 Vikki Charlton Railroad FirerAppliance Fixer 07/28/23 documented as of this encounter
[2025-08-27 15:18] LABS: HCV Log PCR <1.18 NOT DETECTED Log IU/mL (NOT DETECTED); HepC Viral Load <15 NOT DETECTED IU/mL (NOT DETECTED)
== END 2025-08-26 16:05 | disposition home or self-care (01) ==
LOC: HO.HHCL 16:04
PROVIDERS: Family Medicine; PCP Internal Medicine Geriatric Medicine; Visit Provider Internal Medicine Geriatric Medicine
DX: B18.2 Chronic viral hepatitis C (principal)
CPT/HCPCS: 36415; 80076; 87522